=== PATIENT | female | born 1965 | race Caucasian/White ===

== ENCOUNTER 2024-01-08 16:45 | Emergency (ER) | payer MEDICARE, SELFPAY ==
--- NOTE | ~2024-01-08 | XR_ITS ---
EXAMINATION: XR WRIST, RIGHT CLINICAL INFORMATION: Fall COMPARISON: None available. TECHNIQUE: PA, lateral, and oblique views of the right wrist. FINDINGS: The bones are osteopenic. There is a comminuted fracture of the distal radius with a question intra-articular extension to the radiocarpal joint. There is a slight impaction. There is minimal dorsal displacement of the largest fracture fragment with respect to the more proximal shaft. There is a minimally displaced ulnar styloid fracture. Carpal bones are normal. There is diffuse soft tissue swelling about the wrist. XR/XR wrist RT min 3V IMPRESSION: Distal radius and ulnar styloid fractures. Osteopenia.
[2024-01-08 17:33] VITALS: BP 124/60; PULSE 84; RESP 14; TEMP 36.7; O2SAT 97; BMI 21.3
--- NOTE | 2024-01-08 17:34 | ED_ITS ---
HPI - General Adult General Chief complaint: Extremity Injury, Upper Stated complaint: R wrist fracture? Time Seen by Provider: 01/08/24 20:10 Source: patient and family (patient's daughter) Mode of arrival: ambulatory Limitations: physical limitation (patient is deaf in right ear) History of Present Illness HPI narrative: Patient is a 58 year old assigned female at with a history of COPD presenting to the emergency department today with right wrist pain. Patient states that she fell last night getting up to go to the bathroom after tripping on shoes. Patient states that she fell on an outstretched right hand. Patient denies any loss of consciousness or head strike. Patient denies any dizziness, lightheadedness, abdominal pain, nausea, vomiting, fever, chills, blurry vision, double vision, loss of vision, chest pain, difficulty breathing, shortness of breath, back pain, night sweats, pain with urination, increased urinary frequency, increased urinary urgency, blood in his urine or stool, syncope or a near syncopal episode, bowel incontinence, bladder incontinence, bowel retention, bladder retention, or any other complaints at this time. Onset (ago): day(s) (1) Location: right and upper extremity Radiation: non-radiation Severity: mild Severity scale (1-10): 4 Quality: aching and dull Pain Consistency: constant Relieving factors: immobilization Exacerbating factors: movement Associated symptoms: denies other symptoms Treatments prior to arrival: none Related Data Previous Rx's ?Medication ?Instructions ?Recorded doxycycline hyclate 100 mg tablet 100 mg PO BID 7 days #14 tabs 01/08/24 Allergies Allergy/AdvReac Type Severity Reaction Status Date / Time amoxicillin [From Augmentin] Allergy Anaphylaxis Verified 01/08/24 17:36 clavulanic acid Allergy Anaphylaxis Verified 01/08/24 17:36 [From Augmentin] lorazepam [From Ativan] Allergy Unknown Verified 01/08/24 17:36 Review of Systems Constitutional: Constitutional: Reports no additional constitutional complaints, Denies chills, Denies fever(s) and Denies night sweats Eyes: Eyes: Reports no additional eye complaints, Denies blurry vision, Denies change in vision, Denies diplopia, Denies eye discharge, Denies loss of vision and Denies eye pain ENT: Denies dizziness Comments: chronic right hearing loss Cardiovascular: Cardiovascular: Reports no additional cardiovascular complaints, Denies chest pain, Denies lightheadedness, Denies Loss of Consciousness and Denies dyspnea Respiratory: Respiratory: Reports no additional respiratory complaints and Denies dyspnea Gastrointestinal: Gastrointestinal: Reports no additional gastrointestinal complaints, Denies abdominal pain, Denies melena, Denies hematochezia, Denies change in bowel habits and Denies change in stool character Genitourinary: Genitourinary: Denies hematuria, Denies urinary frequency, Denies dysuria, Denies urinary incontinence, Denies urinary hesitancy and Denies urinary urgency Musculoskeletal: Musculoskeletal: Reports no additional musculoskeletal complaints, Denies numbness and Denies tingling Comments: right wrist pain Neurologic: Denies dizziness, Denies loss of vision, Denies numbness and Denies tingling Psychiatric: Psychiatric: Reports no additional psychiatric complaints Endocrine: Endocrine: Reports no additional endocrine complaints Hematologic/Lymphatic: Hematologic/Lymphatic: Reports no additional hematologic/lymphatic complaints Allergic/Immunologic: Allergic/Immunologic: Reports no additional allergic/immunologic complaints PMFSH Past Medical History Attestation statement: The following information was validated with the patient. (patient's daughter validated all information) Source: old records reviewed, obtained from family (patient's daughter provided additional history and confirmed the history provided by the patient) and nursing notes reviewed Social History Social History Advance Directives: No Advance Directives Information Provided: No Do you have a plan to hurt others: No Plan Physical Exam ED Vital Signs: Vital Signs - 24 hr 01/08/24 17:33 Temperature 98.1 F Pulse Rate 84 Respiratory Rate 14 Blood Pressure 124/60 Pulse Oximetry 97 Oxygen Delivery Method Room Air BMI result Body Mass Index 21.3 Const General: cooperative, no acute distress, alert and awake Nutritional Appearance: well nourished Orientation/consciousness: patient oriented x3 Limitations: no limitations HENMT Head: Yes normal to inspection and Yes atraumatic Ears: external ears normal and other (chronic right sided hearing loss) General nose exam: Normal external nose present, no nasal discharge noted and no epistaxis Face and sinus: Yes normal facial exam, No abrasion and No laceration Mouth: Normal oral and palatal mucosa present, no drooling and no muffled voice Eyes General: appearance normal, both eyes and all related structures Periorbital: periorbital findings normal Eyelids: Yes eyelids normal Conjunctivae: conjunctivae normal Pupils: Equal, round and reactive pupils present EOM: EOMs intact bilaterally Neck Neck: Yes normal visual inspection, Yes full ROM and Yes no lymphadenopathy Chest Chest palpation & inspection: normal inspection of the chest Resp Effort & Inspection: normal respiratory effort and able to speak in complete sentences GI Inspection: Yes normal to inspection Neuro General: patient oriented x3 and moves all extremities Cranial nerves: Yes Equal, round and reactive pupils present Cognition (Neuro): normal cognition Motor exam (neuro): 5/5 motor strength present throughout Sensory Exam: Normal double simultaneous stimulation for sensation Coordination: [id number] test normal Extrem Other: right wrist swelling present and pain with right wrist ROM. Small skin tear present to the right proximal forearm General: Yes capillary refill normal Psych Appearance: grossly normal Mental Status: mental status grossly normal Affect: normal affect Attitude: cooperative Thought process: Normal thought process present Thought content: Normal thought content present Insight: Good insight present (Psych) Course Course Course Narrative: RME performed by Ira Thurman PA-C. Patient is a 58 year old assigned female at presenting to the emergency department with right wrist pain. Patient states she tripped and fell onto her right wrist. Patient denies any head strike or loss of consciousness. Detailed physical exam and review of systems are deferred to the report developer. Imaging ordered. Patient placed back in the waiting room pending room availability and results. Procedures Orthopedic Splinting/Casting Injury #1: Side: right Upper Extremity Injury Location: wrist Upper Extremity Immobilizer: sling/shoulder immobilizer and sugar tong splint Medical Decision Making Medical Decision Making MDM Narrative: Patient is a 58 year old assigned female at with a history of COPD presenting to the emergency department today with right wrist pain. Patient's physical exam was as noted in the physical exam portion of this note. Patient's right wrist x-ray showed distal radius and ulnar styloid fractures. I explained my physical exam findings as well as all test results to the patient and the patient's daughter. I answered all questions asked by the patient and the patient's daughter. Patient's right wrist was placed in a sugar tong splint, without incident. Patient's PMS was intact prior to and after splint placement. Patient was given a sling to use when ambulating. I stressed the importance of the patient taking her medication as prescribed. I stressed the importance of the patient following up with her primary care provider and an orthopedic provider. I stressed the importance of the patient returning to the emergency department immediately if her symptoms were to worsen or if she were to develop any dizziness, shortness of breath, difficulty breathing, chest pain, blurry vision, loss of vision, nausea, vomiting, abdominal pain, fever, chills, back pain, or any other complaints. Patient and the patient's daughter verbalized agreement and understanding with this treatment plan and discharge. Differential Diagnosis Differential Diagnoses: The differential diagnosis associated with the presentation includes Wrist fracture Wrist injury Wrist pain Wrist strain Admission/Observation Consideration of admission/observation: Escalation of care including admission/observation considered Patient would have been admitted to the hospital had her work up had any findings where hospital admission was appropriate and her clinical presentation warranted hospital admission. Independent Interpretation I performed an independent interpretation of an: Plain X-Ray Interpretation: My interpretation is in agreement with the radiologist's impression of this imaging study. EXAMINATION: XR WRIST, RIGHT CLINICAL INFORMATION: Fall COMPARISON: None available. TECHNIQUE: PA, lateral, and oblique views of the right wrist. FINDINGS: The bones are osteopenic. There is a comminuted fracture of the distal radius with a question intra-articular extension to the radiocarpal joint. There is a slight impaction. There is minimal dorsal displacement of the largest fracture fragment with respect to the more proximal shaft. There is a minimally displaced ulnar styloid fracture. Carpal bones are normal. There is diffuse soft tissue swelling about the wrist. XR/XR wrist RT min 3V IMPRESSION: Distal radius and ulnar styloid fractures. Osteopenia. Dictated By: Mojgan Dean MD Signed By: Electronically signed by Mojgan Dean MD 01/08/241955 Radiology Impression Discussion of test interpretation with radiology: I have reviewed the radiologist's reading. Independent Historian Clinical information obtained from an independent historian. History obtained from or confirmed by: Other (patient's daughter provided additional history and confirmed the history provided by the patient.) Prescription Management I considered prescription management with: Antibiotic (patient prescribed a prophylactic antibiotic due to the right forearm skin tear and right wrist fx) Critical Care Time Critical Care Time Critical Care Time: Yes Total Critical Care Time: 71 Attestation: I spent 71 minutes of Critical Care Time with this patient. This does not include time spent on separately reported billable procedures. Discharge Plan Discharge Clinical Impression: Fracture of wrist Patient Disposition: Home, Self-Care Instructions: Wrist Fracture in Adults (ED) Additional Instructions: Do NOT get the spint wet. Do NOT remove the splint. If your fingers begin to change color or sensation, you may loosen the outside AUTUMN wraps. If you find yourself loosening the AUTUMN wrap to the point of seeing the underlying splint material, stop and come to the ER. Take your antibiotic as prescribed. Follow up with your primary care provider and an orthopedic provider. Return to the emergency department immediately if your symptoms worsen or if you develop any dizziness, shortness of breath, difficulty breathing, chest pain, blurry vision, loss of vision, nausea, vomiting, abdominal pain, fever, chills, back pain, or any other complaints. Prescriptions: New doxycycline hyclate 100 mg tablet 100 mg PO BID 7 Days Qty: 14 0RF Referrals: [facility] [place] [facility] [Provider Group] (Call to establish and follow up with an orthopedic provider.) Lynsey Doyle MD [Primary Care Provider] - Discharge Date/Time: 01/08/24 20:18 Print Language: Mongolian
--- OUTSIDE RECORDS SUMMARY | 2024-01-08 20:19 | XMS_ITS | Continuity of Care Document ---
Author Organization [facility] Address [address] [place] [address]- Care Team Providers Care Boats Renter Name Role Phone Lynsey Doyle MD Primary Care Physician [place] [facility] [place] [facility] [address] [place] [address] [facility] Attending Physician: Perry CASTANO ([facility]), Dangelo James Admitting Physician: Perry CASTANO ([facility]), Dangelo James Referring Physician: Lynsey Doyle MD Allergies, Adverse Reactions, Alerts Substance Reaction Severity Status salsalate rash Active Augmentin throat swelling Active Levaquin Active LORazepam Persistent Moderate Active Medications albuterol 90 mcg/inh inhalation powder 1 puffs, Inhalation, Every 4 hours, PRN as needed, # 1 each, 0 Refills, Maintenance, 01/16/20 21:20:00 EDT, Powder Start Date: 01/16/20 Status: Ordered Cipro 500 mg oral tablet 1 tablet = 500 mg, By Mouth, Every 12 hours, for 28 days, # 56 tablet, 0 Refills, Acute 05/09/20 9:24:00 EDT, 04/11/20 9:24:00 EDT, Tablet, [facility]/pharmacy #[id number], 157, cm, 04/11/20 9:04:00 EDT, Height, 45, kg, 01/17/20 15:52:00 EDT, Dry Weight Start Date: 04/11/20 Stop Date: 05/09/20 Status: Ordered Combivent Respimat 20 mcg-100 mcg/inh inhalation aerosol 1 puffs, Inhalation, 4 times a day, # 4 Gm, 0 Refills, Maintenance, 01/16/20 21:20:00 EDT, Aerosol Start Date: 01/16/20 Status: Ordered meropenem 1 gm intravenous powder for injection = 1,000 mg, IV Infusion, Every 8 hours, for 37 days, # 21 each, 5 Refills, Acute 08/30/20 11:18:00 EST, 01/21/20 11:18:00 EDT Start Date: 01/21/20 Stop Date: 08/30/20 Status: Ordered Symbicort 160mcg/4.5mcg Inhaler 2, puffs, Inhalation, 2 times a day, # 6 Gm, Refills 0, Maintenance, 01/16/20 21:19:00 EDT, Aerosol Start Date: 01/16/20 Status: Ordered Tylenol 8 Hour 650 mg oral tablet, extended release 2 tablet = 1,300 mg, By Mouth, Every 8 hours, PRN as needed for fever, # 50 tablet, 0 Refills, Maintenance, 01/16/20 21:19:00 EDT, ER Tablet Start Date: 01/16/20 Status: Ordered Social History Social History Type Response Smoking Status Current every day court estrada entered on: 12/26/14 Sex
--- OUTSIDE RECORDS SUMMARY | 2024-01-08 20:19 | XMS_ITS | Continuity of Care Document ---
Author Organization [facility] Address [address] [place], [place] [address]mad[place], [address] [place] [address]- Care Team Providers Care Obstetrical Anesthesiologist Name Role Phone Lynsey Doyle MD Primary Care Physician [place] [facility] [place] - 06/08/[address], [address] [place], [place] [address] Attending Physician: Admtr, Ar8 Admitting Physician: Admtr, Ar8 Referring Physician: Admtr, Ar8 Allergies, Adverse Reactions, Alerts Substance Reaction Severity Status salsalate rash Active Augmentin 1 throat swelling Active Levaquin Active LORazepam 2 Hallucinations Persistent Moderate Active 1Tolerates cefepime 2per daughter patient gets hallucinations. Immunizations Given and Recorded Vaccine Date Status Refusal Reason SARS-CoV-2 (COVID-19) mRNA-1273 vaccine 01/25/21 R ecorded SARS-CoV-2 (COVID-19) mRNA-1273 vaccine 12/27/20 R ecorded influenza virus vaccine, inactivated 09/08/20 Give n influenza virus vaccine, inactivated 07/16/19 Vijay rded tetanus/diphtheria/pertussis, acel(Tdap) 01/19/10 Recorded Medications albuterol 90 mcg/inh inhalation powder 1 puffs, Inhalation, Every 4 hours, PRN as needed, # 1 each, 0 Refills, Maintenance, 01/16/20 21:20:00 EDT, Powder Start Date: 01/16/20 Status: Ordered amLODIPine 5 mg oral tablet 5 mg, 1, tablet, By Mouth, Daily, # 30 tablet, Refills 0, Tot. Refills 0, Maintenance, 03/02/21 10:36:00 EDT, Route to Pharmacy Electronically, [facility]/pharmacy #[id number], Partial fill upon patient request if the prescription is for a schedule II opioid drug.... Start Date: 03/02/21 Status: Ordered Combivent Respimat 20 mcg-100 mcg/inh inhalation aerosol 1 puffs, Inhalation, 4 times a day, # 4 Gm, 0 Refills, Maintenance, 01/16/20 21:20:00 EDT, Aerosol Start Date: 01/16/20 Status: Ordered folic acid 1 mg oral tablet 1 mg, 1, tablet, By Mouth, Daily, # 30 tablet, Refills 0, Tot. Refills 0, Maintenance, 03/02/21 10:37:00 EDT, Route to Pharmacy Electronically, [facility]/pharmacy #[id number], Partial fill upon patient request if the prescription is for a schedule II opioid drug.... Start Date: 03/02/21 Status: Ordered multivitamin Multiple Vitamins oral tablet 1 tablet, By Mouth, Daily, # 30 tablet, 0 Refills, Maintenance, 03/02/21 10:38:00 EDT, Tablet, [facility]/pharmacy #[id number], Partial fill upon patient request if the prescription is for a schedule II opioid drug., 1 tablet By Mouth Daily, 160, cm, 09/08/20 1:35... Start Date: 03/02/21 Status: Ordered Symbicort 160mcg/4.5mcg Inhaler 2, puffs, Inhalation, 2 times a day, # 6 Gm, Refills 0, Maintenance, 01/16/20 21:19:00 EDT, Aerosol Start Date: 01/16/20 Status: Ordered thiamine 100 mg oral tablet 100 mg, 1, tablet, By Mouth, Daily, # 30 tablet, Refills 0, Tot. Refills 0, Maintenance, 03/02/21 10:37:00 EDT, Route to Pharmacy Electronically, [facility]/pharmacy #[id number], Partial fill upon patient requestif the prescription is for a schedule II opioid hebert... Start Date: 03/02/21 Stop Date: 04/01/21 Status: Ordered Problem List Condition Effective Dates Status Health Status Inform ant Myofascial pain on right side(Confirmed) Active Social History Social History Type Response Smoking Status Current every day court estrada entered on: 12/26/14 Sex
--- OUTSIDE RECORDS SUMMARY | 2024-01-08 20:19 | XMS_ITS | Continuity of Care Document ---
Author Organization [facility] ter Address [address] [place] [address]- Care Team Providers Care Certified Anesthesiologist Assistant Name Role Phone Lynsey Doyle MD Primary Care Physician [place] [facility] [place] - 01/22/[address] [address]- [facility] Encounter Diagnosis Hyponatremia(Final) - 01/16/20 Discharge Disposition: A-Transfer VNA/Home Health Attending Physician: Jonel Gaxiola MD Admitting Physician: Maylin Holloway DO Referring Physician: Not on Staff, Referring MD Allergies, Adverse Reactions, Alerts Substance Reaction Severity Status salsalate rash Active Augmentin throat swelling Active LORazepam Persistent Moderate Active Medications acetaminophen/butalbital/caffeine 325 mg-50 mg-40 mg oral capsule 1 capsule, By Mouth, Every 4 hours, PRN Headache, for 5 days, # 20 capsule, 0 Refills, Acute 01/26/20 11:16:00 EDT, 01/21/20 11:16:00 EDT, Capsule, [id number], 1 capsule By Mouth Every 4 hours,x5 days,PRN:Headache, 157, cm, 01/21/20 7:30:00 ED... Start Date: 01/21/20 Stop Date: 01/26/20 Status: Ordered albuterol 90 mcg/inh inhalation powder 1 puffs, Inhalation, Every 4 hours, PRN as needed, # 1 each, 0 Refills, Maintenance, 01/16/20 21:20:00 EDT, Powder Start Date: 01/16/20 Status: Ordered Combivent Respimat 20 mcg-100 mcg/inh [...] Date: 01/21/20 Stop Date: 08/30/20 Status: Ordered Nicoderm C-Q 21 mg/24 hr transdermal film, extended release 1 patch, Topically, Daily, for 28 days, # 28 patch, 1 Refills, Acute 03/18/20 8:24:00 EDT, :24:00 EDT, Patch, [facility]/pharmacy #[id number], 157, cm, 01/22/20 7:50:00 EDT, Height, 45, kg, 01/17/20 15:52:00 EDT, Dry Weight Start Date: 01/22/20 Stop Date: 03/18/20 Status: Ordered Symbicort 160mcg/4.5mcg Inhaler 2, puffs, [...] ER Tablet Start Date: 01/16/20 Status: Ordered Results Orders for Microbiology Reports Name Date Blood Culture 01/17/20 Blood Culture #2 01/17/20 CSF Culture w/ Gram Smear 01/16/20 AFB Culture w/ AFB Smear, Nonrespiratory (ACID FAST CULT,NON-RESP) 01/16/20 Microbiology Reports TEST:Blood Culture, Second Order STATUS:Auth (Verified) BODY SITE: SOURCE:Blood COLLECTED DATE/TIME:01/17/20 12:52 PM Blood Culture, Second Order SPECIMEN DESCRIPTION : BLOOD LWRIST SPECIAL REQUESTS : NONE CULTURE : NO GROWTH 5 DAYS. REPORT STATUS : FINAL 01/22/2020 TEST:Blood Culture STATUS:Auth (Verified) BODY SITE: SOURCE:Blood COLLECTED DATE/TIME:01/17/20 12:45 PM Blood Culture SPECIMEN DESCRIPTION : BLOOD LFOREARM SPECIAL REQUESTS : NONE CULTURE : NO GROWTH 5 DAYS. REPORT STATUS : FINAL 01/22/2020 TEST:Spinal Fluid Culture STATUS:Auth (Verified) BODY SITE: SOURCE:CEREBR COLLECTED DATE/TIME:01/16/20 3:24 PM Spinal Fluid Culture SPECIMEN DESCRIPTION : CEREBROSPINAL FLUID SPECIAL REQUESTS : NONE GRAM STAIN : 3+ POLYMORPHONUCLEAR LEUKOCYTES NO ORGANISMS SEEN CULTURE : NO GROWTH 3 DAYS REPORT STATUS : FINAL 01/19/2020 TEST:AFB Culture w/AFB Smear, Non-Respiratory STATUS:Unauthenticated BODY SITE: SOURCE:CEREBR COLLECTED DATE/TIME:01/16/20 3:24 PM AFB Culture w/AFB Smear, Non-Respiratory SPECIMEN DESCRIPTION : CEREBROSPINAL FLUID SPECIAL REQUESTS : NONE DIRECT EXAM : NO ACID FAST BACILLI SEEN ON DIRECT SMEAR, TEST PERFORMED AT [facility] No acid fast bacilli seen on concentrated smear. Per [facility] protocol, this specimen was concentrated prior to smear preparation. [facility], [address] [place] [id number]. CULTURE : SPECIMEN SENT TO DEPT PUBLIC [facility], [place], [place] REPORT STATUS : PRELIMINARY REPORT Radiology Reports * Exam Date Time Procedure Performing Provider Status 01/16/20 1:51 PM Chest Portable Songarabella Laine; Auth (Verified) Notes: (Chest Portable) Reason For Exam: Shortness of Breath RESULT: Chest Portable Chest Portable Reason: Shortness of Breath; Clinical Question(s): CHF; Hx of Present Illness: headaches x 1 hyr; COMPARISON: None. FINDINGS: LINES AND TUBES: None. LUNGS AND PLEURA: Clear lungs. Normal pulmonary vascularity. There are a few scattered left lung calcified granulomas. No pleural effusion. No pneumothorax. HEART, MEDIASTINUM AND JAMES: Heart is normal in size. Normal mediastinal and hilar contour. BONES AND SOFT TISSUES: No acute abnormality. Old left clavicular fracture. Anterior cervical fusion devices noted. IMPRESSION: No active disease. WSN: [id number] Ordering Physician: Chasity Lynn Dictated By: Romero Lan MD Dictated Date/Time: 01/16/20 2:38 pm Reviewed By: Romero Lan MD Signed By: Romero Lan MD Signed Date/Time: 01/16/20 2:38 pm Transcribed By: CSB Transcribed Date/Time: 01/16/20 2:36 pm Vital Signs Most recent to oldest [Reference Range]: 1 2 3 Height 157 cm (01/22/20 7:50 AM) 157 cm (01/22/20 12:34 AM) 157 cm (01/21/20 8:09 PM) Weight 44.3 kg (01/17/20 3:53 PM) 44.3 kg (01/17/20 3:52 PM) Oxygen Saturation [94-100 %] 96 % (01/22/20 7:50 AM) 96 % (01/22/20 12:34 AM) 96 % (01/21/20 8:09 PM) Pulse Rate [55-90 bpm] 79 bpm (01/22/20 7:50 AM) 83 bpm (01/22/20 12:34 AM) 94 bpm *H* (01/21/20 8:09 PM) Body Mass Index [18.5-24.99] 17.97 *L* (01/17/20 3:52 PM) Blood Pressure [90-138/55-84 mm Hg] 166/79mm Hg *H* (01/22/20 7:50 AM) 149/70mm Hg *H* (01/22/20 12:34 AM) 150/69mm Hg *H* (01/21/20 8:09 PM) Respiratory Rate [16-30 br/min] 18 br/min (01/22/20 7:50 AM) 19 br/min (01/22/20 12:34 AM) 20 br/min (01/21/20 10:56 PM) Temperature [96.8-100.4 DegF] 98.3 DegF (01/22/20 7:50 AM) 98.3 DegF (01/22/20 12:34 AM) 98.7 DegF (01/21/20 8:09 PM) Mode of Delivery (Oxygen) Room air (01/22/20 7:50 AM) Room air (01/22/20 12:34 AM) Room air (01/21/20 8:09 PM) Blood pressure sites Arm, right (01/22/20 7:50 AM) Arm, right (01/22/20 12:34 AM) Arm, right (01/21/20 8:09 PM) Temperature Route Oral (01/22/20 7:50 AM) Oral (01/22/20 12:34 AM) Oral (01/21/20 8:09 PM) Dry Weight 45 kg (01/17/20 3:52 PM) Weight Obtained Via Bed scale (01/17/20 3:53 PM) Social History Social History Type Response Smoking Status Current every day court estrada entered on: 12/26/14 Sex
--- OUTSIDE RECORDS SUMMARY | 2024-01-08 20:19 | XMS_ITS | Continuity of Care Document ---
Author Organization [facility] Address [address] [place] [address]- Care Team Providers Care Tax Map Technician Name Role Phone Lynsey Doyle MD Primary Care Physician Encounter [facility] [place] Date(s): 05/12/20 - 06/11/20 [facility] [address] [place] [address]- [facility] Allergies, Adverse Reactions, Alerts Substance Reaction Severity [...]
--- OUTSIDE RECORDS SUMMARY | 2024-01-08 20:19 | XMS_ITS | Continuity of Care Document ---
Author Organization [facility] ter Address [address] [place] [address]- Care Team Providers Care Parts Counterman Name Role Phone Lynsey Doyle MD Primary Care Physician [place] [facility] [place] 04/06/20 - 04/06/[address] [address]- [facility] Discharge Disposition: A-D/C Home Attending Physician: Neftaly Christie MD Admitting Physician: Neftaly Christie MD Referring Physician: Neftaly Christie MD Allergies, Adverse Reactions, Alerts Substance Reaction [...] ER Tablet Start Date: 01/16/20 Status: Ordered Vital Signs Most recent to oldest [Reference Range]: 1 2 3 Oxygen Saturation [94-100 %] 94 % (04/06/20 4:30 PM) 97 % (04/06/20 4:15 PM) 96 % (04/06/20 4:08 PM) Pulse Rate [55-90 bpm] 93 bpm *H* (04/06/20 12:50 PM) Blood Pressure [90-138/55-84 mm Hg] 138/64mm Hg (04/06/20 4:30 PM) 125/65mm Hg (04/06/20 4:15 PM) 132/70mm Hg (04/06/20 4:08 PM) Respiratory Rate [16-30 br/min] 17 br/min (04/06/20 4:30 PM) 17 br/min (04/06/20 4:15 PM) 16 br/min (04/06/20 4:08 PM) Temperature [96.8-100.4 DegF] 98.4 DegF (04/06/20 4:15 PM) 98.6 DegF (04/06/20 3:57 PM) 98.2 DegF (04/06/20 12:50 PM) Mode of Delivery (Oxygen) Room air (04/06/20 4:30 PM) Room air (04/06/20 4:15 PM) Room air (04/06/20 4:08 PM) Blood pressure sites Arm, right (04/06/20 4:30 PM) Arm, right (04/06/20 4:15 PM) Arm, right (04/06/20 4:08 PM) Temperature Route Temporal (04/06/20 4:15 PM) Temporal (04/06/20 3:57 PM) Oral (04/06/20 12:50 PM) Social History Social History Type Response Smoking Status Current every day court estrada entered on: 12/26/14 Sex
--- OUTSIDE RECORDS SUMMARY | 2024-01-08 20:19 | XMS_ITS | Continuity of Care Document ---
Author Organization [facility] Address [address] [facility], [address] Floor, [address] [place] [address]- Care Team Providers Care Tape Control Skin Or Spar Mill Operator Name Role Phone Lynsey Doyle MD Primary Care Physician [place] [facility] [place]14/20 - 02/13/20 [facility] [address], [address], [address] [place] [address]- [facility] Attending Physician: Admtr, Ar8 Admitting Physician: Admtr, Ar8 Referring Physician: Admtr, Ar8 Allergies, Adverse Reactions, Alerts Substance Reaction Severity Status salsalate rash Active Augmentin throat swelling Active LORazepam Persistent Moderate Active Medications albuterol [...] patch, 1 Refills, Acute 03/18/20 8:24:00 EDT, 208:24:00 EDT, Patch, [id number], 157, cm, 01/22/20 7:50:00 EDT, Height, [...]
--- OUTSIDE RECORDS SUMMARY | 2024-01-08 20:19 | XMS_ITS | Continuity of Care Document ---
Author Organization [facility] Address [address] [place], [place] [address]madan doyle, [address] [place] [address]- Care Team Providers Care Kiln Firer Name Role Phone Lynsey Doyle MD Primary Care Physician Encounter [facility] [place] Date(s): 04/24/21 - 05/24/21 [facility] [address] [place] [address] Drive, [address] [place], [place] [address] Allergies, Adverse Reactions, Alerts Substance Reaction Severity [...] 03/02/21 10:36:00 EDT, Route to Pharmacy Electronically, [facility]/pharmacy #[id number], Partial fill upon patient request if the [...] 03/02/21 10:37:00 EDT, Route to Pharmacy Electronically, [facility]/pharmacy #[id number], Partial fill upon patient request if the prescription is for a schedule II opioid drug.... Start Date: 03/02/21 Status: Ordered hydrocortisone/neomycin/polymyxin B otic 1%-0.35%-96678 u/ml suspension 4 drops, Ear, Right, 4 times a day, for 30 days, please continue until advised to stop by ENT, # 10mL, 2 Refills, Acute 05/31/21 10:38:00 EDT, 03/02/21 10:38:00 EDT, Otic Suspension, [facility]/pharmacy #[id number], Partial fill upon patient request if the prescr... Start Date: 03/02/21 Stop Date: 05/31/21 Status: Ordered multivitamin Multiple Vitamins oral tablet 1 tablet, By Mouth, Daily, # 30 tablet, 0 Refills, Maintenance, 03/02/21 10:38:00 EDT, Tablet, [facility]/pharmacy #[id number], Partial fill upon patient request if [...] 03/02/21 10:37:00 EDT, Route to Pharmacy Electronically, [facility]/pharmacy #[id number], Partial fill upon patient requestif the prescription is for a schedule II opioid hebert... Start Date: 03/02/21 Stop Date: 04/01/21 Status: Ordered Problem List Condition Effective Dates Status Health Status Inform ant Myofascial pain on right side(Confirmed) Active Social History Social History Type Response Smoking Status Current every day court estrada entered on: 12/26/14 Sex
--- OUTSIDE RECORDS SUMMARY | 2024-01-08 20:19 | XMS_ITS | Continuity of Care Document ---
Author Organization [facility] Address [address] [place] [address]- Care Team Providers Care Gum Rolling Machine Tender Name Role Phone Lynsey Doyle MD Primary Care Physician [phone] [place] [facility] [place] 03/05/21 - 04/04/21 [facility] [address] [place] [address] Allergies, Adverse Reactions, Alerts Substance Reaction Severity [...] EDT, Route to Pharmacy Electronically, [facility]/pharmacy #[id number], Partial fill upon patient request if the [...] Date: 03/02/21 Status: Ordered hydrocortisone/neomycin/polymyxin B otic 1%-0.35%-50404 u/ml suspension 4 drops, Ear, Right, 4 [...] Date: 03/02/21 Stop Date: 04/01/21 Status: Ordered Social History Social History Type Response Smoking Status Current every day court estrada entered on: 12/26/14 Sex
--- OUTSIDE RECORDS SUMMARY | 2024-01-08 20:19 | XMS_ITS | Continuity of Care Document ---
Author Organization [facility] Address [address] [facility], 3r [address] Floor, [address] [place] [address]- Care Team Providers Care Technical Services Representative Name Role Phone Lynsey Doyle MD Primary Care Physician [place] [facility] [place]): [place]21[place]20 [facility] [address], [address], [address] [place] [address]- [facility] Attending Physician: Karla Guerrero Referring Physician: Pratik CASTANO, Neftaly Bowie Allergies, Adverse Reactions, Alerts Substance Reaction Severity [...]
--- OUTSIDE RECORDS SUMMARY | 2024-01-08 20:19 | XMS_ITS | Continuity of Care Document ---
Author Organization [facility] Address [address] [place] [address]- Care Team Providers Care Dry Cleaning Supervisor Name Role Phone Lynsey Doyle MD Primary Care Physician [place] [facility] [place] 04[place]13/20 [facility] [address] [place] [address]- [facility] Attending Physician: Duong Ogden MD Admitting Physician: Duong Ogden MD Referring Physician: Lynsey Doyle MD Allergies, Adverse Reactions, Alerts Substance Reaction Severity Status salsalate rash Active Levaquin Active LORazepam Persistent Moderate Active Augmentin throat swelling Active Medications albuterol 90 mcg/inh inhalation powder 1 puffs, Inhalation, Every 4 hours, PRN as needed, # 1 each, 0 Refills, Maintenance, 01/16/20 21:20:00 EDT, Powder Start Date: 01/16/20 Status: Ordered Cipro 500 mg oral tablet 1 tablet = 500 mg, By Mouth, Every 12 hours, for 28 days, # 56 tablet, 0 Refills, Acute 05/09/20 9:24:00 EDT, 04/11/20 9:24:00 EDT, Tablet, [facility]/pharmacy #[id number], 157, cm, 04/11/20 9:04:00 EDT, Height, [...]
--- OUTSIDE RECORDS SUMMARY | 2024-01-08 20:19 | XMS_ITS | Continuity of Care Document ---
Author Organization [facility] ter Address [address] [place] [address]- Care Team Providers Care Conductor/Brakeman Name Role Phone Vivek CASTANO, Lynsey James Primary Care Physician Encounter [facility] [place] Date(s): 02/18/21 - 03/02/[address] [address] Encounter Diagnosis Alcohol withdrawal(Final) - 02/19/21 Discharge Disposition: A-Transfer VNA/Home Health Attending Physician: Murali CASTANO, Nathan John Admitting Physician: Mynor Jean MD Referring Physician: Not on Staff, Referring MD [...] 03/02/21 10:36:00 EDT, [facility], [id number], Partial fill upon patient request if the prescription is for a schedule II opioid drug.... Start Date: 03/02/21 Status: Ordered amLODIPine 5 mg oral tablet 5 mg, Tablet, By Mouth, 03/02/21 9:00:00 EDT Start Date: 03/02/21 Stop Date: 03/02/21 Status: Completed Combivent Respimat 20 mcg-100 mcg/inh inhalation aerosol 1 puffs, Inhalation, 4 times a day, # 4 Gm, 0 Refills, Maintenance, 01/16/20 21:20:00 EDT, Aerosol Start Date: 01/16/20 Status: Ordered folic acid 1 mg oral tablet 1 mg, 1, tablet, By Mouth, Daily, # 30 tablet, Refills 0, Tot. Refills 0, Maintenance, 03/02/21 10:37:00 EDT, Route to Pharmacy Electronically, [facility]/pharmacy #[id number], Partial fill upon patient request if the prescription is for a schedule II opioid drug.... Start Date: 03/02/21 Status: Ordered hydrocortisone/neomycin/polymyxin B otic 1%-0.35%-37150 u/ml suspension 4 drops, Ear, Right, 4 times a day, for 30 days, please continue until advised to stop by ENT, # 10mL, 2 Refills, Acute 05/31/21 10:38:00 EDT, 03/02/21 10:38:00 EDT, Otic Suspension, [facility]/pharmacy #[id number], Partial fill upon patient request if the prescr... Start Date: 03/02/21 Stop Date: 05/31/21 Status: Ordered meropenem 1 gm intravenous powder for injection = 2,000 mg, IV Infusion, Every 8 hours, # 30 each, 0 Refills, Acute 04/04/21 22:00:00 EDT, 03/02/2110:39:00 EDT, [facility]/pharmacy #[id number], Partial fill upon patient request if the prescription is for a schedule II opioid drug., 160, cm, 09/08/20 1:35:00 ES... Start Date: 03/02/21 Stop Date: 04/04/21 Status: Ordered multivitamin Multiple Vitamins oral tablet 1 tablet, By Mouth, Daily, # 30 tablet, 0 Refills, Maintenance, 03/02/21 10:38:00 EDT, Tablet, [facility]/pharmacy #[id number], Partial fill upon patient request if the prescription is for a schedule II opioid drug., 1 tablet By Mouth Daily, 160, cm, 09/08/20 1:35... Start Date: 03/02/21 Status: Ordered nicotine 14 mg/24 hr transdermal film, extended release 1 patch, Topically, Daily, for 30 days, # 30 patch, 0 Refills, Acute 04/01/21 10:39:00 EDT, 03/02/21 10:39:00 EDT, Patch, [facility]/pharmacy #[id number], Partial fill upon patient request if the prescription is for a schedule II opioid drug., 1 patch Topically Da... Start Date: 03/02/21 Stop Date: 04/01/21 Status: Ordered Symbicort 160mcg/4.5mcg Inhaler 2, puffs, Inhalation, 2 times a day, # 6 Gm, Refills 0, Maintenance, 01/16/20 21:19:00 EDT, Aerosol Start Date: 01/16/20 Status: Ordered thiamine 100 mg oral tablet 100 mg, 1, tablet, By Mouth, Daily, # 30 tablet, Refills 0, Tot. Refills 0, Maintenance, 03/02/21 10:37:00 EDT, Route to Pharmacy Electronically, [facility]/pharmacy #[id number], Partial fill upon patient requestif the prescription is for a schedule II opioid hebert... Start Date: 03/02/21 Stop Date: 04/01/21 Status: Ordered Results Orders for Microbiology Reports Name Date CSF Culture w/ Gram Smear 02/19/21 Fungal Culture, Nonrespiratory (FUNGAL C ULT,NON-RESPIRATORY) 02/19/21 Blood Culture #2 02/18/21 Blood Culture 02/18/21 Microbiology Reports TEST:Spinal Fluid Culture STATUS:Auth (Verified) BODY SITE: SOURCE:CEREBR COLLECTED DATE/TIME:02/19/21 4:45 PM Spinal Fluid Culture SPECIMEN DESCRIPTION : CEREBROSPINAL FLUID SPECIAL REQUESTS : NONE GRAM STAIN : 4+ WHITE BLOOD CELLS NO ORGANISMS SEEN CULTURE : NO GROWTH 3 DAYS REPORT STATUS : FINAL 02/23/2021 TEST:Fungal Culture, Non-Respiratory STATUS:Unauthenticated BODY SITE: SOURCE:CEREBR COLLECTED DATE/TIME:02/19/21 4:45 PM Fungal Culture, Non-Respiratory SPECIMEN DESCRIPTION : CEREBROSPINAL FLUID TU3 SPECIAL REQUESTS : NONE DIRECT EXAM : NO FUNGAL ELEMENTS OBSERVED CULTURE : NO FUNGI ISOLATED AFTER 8 DAYS REPORT STATUS : PRELIMINARY REPORT TEST:Blood Culture, Second Order STATUS:Auth (Verified) BODY SITE: SOURCE:Blood COLLECTED DATE/TIME:02/18/21 4:06 PM Blood Culture, Second Order SPECIMEN DESCRIPTION : BLOOD NO SITE SPECIAL REQUESTS : NONE CULTURE : NO GROWTH 5 DAYS. REPORT STATUS : FINAL 02/23/2021 TEST:Blood Culture STATUS:Auth (Verified) BODY SITE: SOURCE:Blood COLLECTED DATE/TIME:02/18/21 3:58 PM Blood Culture SPECIMEN DESCRIPTION : BLOOD R SPECIAL REQUESTS : NONE CULTURE : NO GROWTH 5 DAYS. REPORT STATUS : FINAL 02/23/2021 Radiology Reports * Exam Date Time Procedure Performing Provider Status 02/21/21 4:36 PM Chest Portable Osmel Pinto; Auth (Ve rified) Notes: (Chest Portable) Reason For Exam: OG Tube Placement RESULT: Chest Portable Chest Portable Reason: OG Tube Placement; Clinical Question(s): Tube Placement COMPARISON: 02/21/2021 at 1342 FINDINGS: Stable endotracheal tube. Enteric tube courses below the diaphragm into the stomach. Esophageal thermometer probe is stable. Left subclavian central venous catheter is stable IMPRESSION: Enteric tube courses below the diaphragm into the stomach. No acute cardiopulmonary process WSN: [id number] Ordering Physician: Zelalem Peralta Dictated By: Chintan Vega MD Dictated Date/Time: 02/21/21 4:53 pm Reviewed By: Chintan Vega MD Signed By: Chintan Vega MD Signed Date/Time: 02/21/21 4:53 pm Transcribed By: RENÉE Transcribed Date/Time: 02/21/21 4:51 pm * Exam Date Time Procedure Performing Provider Status 02/21/21 2:04 PM Chest Portable Stepan Najera; Auth ( Verified) Notes: (Chest Portable) Reason For Exam: Line Placement RESULT: Chest Portable Chest Portable Reason: Line Placement; Clinical Question(s): Line Placement COMPARISON: 02/18/2021 FINDINGS: Enteric tube tip projects over the proximal stomach. Side port at the approximate level of the GE junction. Stable endotracheal tube. Left subclavian central venous catheter tip projects over the SVC. Esophageal thermometer probe over the mid thorax. No acute cardiopulmonary process IMPRESSION: Support lines and tubes are outlined above. Side port of the enteric tube projects at the expected level of the GE junction. Consider advancement. No acute cardiopulmonary process A Wyatt message has been communicated via the [employer] system on 02/21/2021 2:41 PM, Message ID [id number]. WSN: [id number] Ordering Physician: Elyse Portillo Dictated By: Chintan Vega MD Dictated Date/Time: 02/21/21 2:41 pm Reviewed By: Chintan Vega MD Signed By: Chintan Vega MD Signed Date/Time: 02/21/21 2:41 pm Transcribed By: RENÉE Transcribed Date/Time: 02/21/21 2:40 pm * Exam Date Time Procedure Performing Provider Status 02/18/21 5:42 PM Chest Portable Cindy Fong; Anderson ( Verified) Notes: (Chest Portable) Reason For Exam: Tube Placement RESULT: Chest Portable Chest Portable Hx of Present Illness: I think I have osteomyelitis h o this in L jaw?? Uncertain of when - pt not a good historian in triage Z Pod. Per daughter - last drink 3 days ago. c o tremors, N V, ESPINAL, L jaw neck pain; Reason: Tube Placement; Clinical Question(s): Tube Placement COMPARISON: 02/18/2021 FINDINGS: LINES AND TUBES: Endotracheal tube with tip 6.3 cm above jadiel. Esophagogastric tube with tip collimated from view,but with side port below region of gastroesophageal junction. LUNGS AND PLEURA: No pneumothorax. No pleural effusion. The lungs are clear. Pulmonary vascularity is normal. HEART, MEDIASTINUM AND JAMES: Heart is normal in size. Normal mediastinal silhouette. BONES AND SOFT TISSUES: No acute bony abnormalities. IMPRESSION: Endotracheal tube tip 6.3 cm above jadiel. Slight advancement could optimize position. Esophagogastric tube side port appropriately below the gastroesophageal junction. No acute abnormality. WSN: [id number] Ordering Physician: Julian Collins Dictated By: Duong Matson MD Dictated Date/Time: 02/18/21 6:09 pm Reviewed By: Duong Matson MD Signed By: Duong Matson MD Signed Date/Time: 02/18/21 6:09 pm Transcribed By: RENÉE Transcribed Date/Time: 02/18/21 6:07 pm * Exam Date Time Procedure Performing Provider Status 02/18/21 4:07 PM Chest Portable Fitting , Rosalio; Anderson ( Verified) Notes: (Chest Portable) Reason For Exam: Shortness of Breath RESULT: Chest Portable Chest Portable Hx of Present Illness: I think I have osteomyelitis h o this in L jaw?? Uncertain of when - pt not a good historian in triage Z Pod. Per daughter - last drink 3 days ago. c o tremors, N V, ESPINAL, L jaw neck pain; Reason: Shortness of Breath; Clinical Question(s): CHF COMPARISON: 09/05/2020 FINDINGS: LINES AND TUBES: None. LUNGS AND PLEURA: Right lung is clear. Unchanged calcified granuloma in the left upper lobe. Left lung is otherwise clear. No pleural effusion. No pneumothorax. HEART, MEDIASTINUM AND JAMES: Heart is normal in size. Aorta is mildly calcified. BONES AND SOFT TISSUES: No acute abnormality. Lower cervical fusion hardware. IMPRESSION: No acute abnormality. WSN: [id number] Ordering Physician: Julian Collins Dictated By: Gvoind De Santiago DO Dictated Date/Time: 02/18/21 4:14 pm Reviewed By: Govind De Santiago DO Signed By: Govind De Santiago DO Signed Date/Time: 02/18/21 4:14 pm Transcribed By: RENÉE Transcribed Date/Time: 02/18/21 4:13 pm Vital Signs Most recent to oldest [Reference Range]: 1 2 3 Weight 54 kg (03/02/21 7:29 AM) 54.5 kg (02/28/21 7:23 AM) 53.5 kg (02/27/21 8:30 AM) Oxygen Saturation [94-100 %] 97 % (03/02/21 6:29 AM) 97 % (03/02/21 2:25 AM) 99 % (03/01/21 4:25 PM) Pulse Rate [55-90 bpm] 90 bpm (03/02/21 6:29 AM) 85 bpm (03/02/21 2:25 AM) 90 bpm (03/01/21 4:25 PM) Blood Pressure [90-138/55-84 mm Hg] 120/67mm Hg (03/02/21 9:26 AM) 118/65mm Hg (03/02/21 6:29 AM) 127/51mm Hg (03/02/21 2:25 AM) Respiratory Rate [16-30 br/min] 18 br/min (03/02/21 6:29 AM) 18 br/min (03/02/21 2:25 AM) 18 br/min (03/01/21 4:25 PM) Temperature [96.8-100.4 DegF] 98.3 DegF (03/02/21 6:29 AM) 98.0 DegF (03/02/21 2:25 AM) 98.0 DegF (03/01/21 4:25 PM) Liters per Minute 2 L/min (02/24/21 11:00 AM) 2 L/min (02/24/21 10:00 AM) 2 L/min (02/24/21 9:00 AM) Mode of Delivery (Oxygen) Room air (03/02/21 6:29 AM) Room air (03/02/21 2:25 AM) Room air (03/01/21 4:25 PM) Blood pressure sites Arm, right (03/02/21 6:29 AM) Arm, right (03/02/21 2:25 AM) Arm, left (03/01/21 4:25 PM) Temperature Route Oral (03/02/21 6:29 AM) Oral (03/02/21 2:25 AM) Oral (03/01/21 4:25 PM) Dry Weight 48.1 kg (02/19/21 7:00 AM) Weight Obtained Via Bed scale (02/18/21 8:27 PM) Dry Weight Obtained Via Bed scale (02/19/21 7:00 AM) Social History Social History Type Response Smoking Status Current every day court estrada entered on: 12/26/14 Sex
--- OUTSIDE RECORDS SUMMARY | 2024-01-08 20:19 | XMS_ITS | Continuity of Care Document ---
Author Organization [facility] Address [address] [place] [address]- Care Team Providers Care Metal Box Maker Name Role Phone Lynsey Doyle MD Primary Care Physician [phone] Encounter [facility] [place] Date(s): 08/13/21 - 09/12/21 [facility] [address] [place] [address]- Attending Physician: Milton Haque Admitting Physician: AdmMilton julio Referring Physician: Admtr, Ar8 Allergies, Adverse Reactions, Alerts Substance Reaction Severity Status salsalate rash Active Levaquin Active LORazepam 1 Hallucinations Persistent Moderate Active Augmentin 2 throat swelling Active 1per daughter patient gets hallucinations. 2Tolerates cefepime Immunizations Given and Recorded Vaccine Date Status Refusal Reason SARS-CoV-2 (COVID-19) mRNA-1273 vaccine 01/25/21 R ecorded SARS-CoV-2 (COVID-19) mRNA-1273 vaccine 12/27/20 R ecorded influenza virus vaccine, inactivated 09/08/20 Give n influenza virus vaccine, inactivated 07/16/19 Vijay rded tetanus/diphtheria/pertussis, acel(Tdap) 01/19/10 Recorded Medications amLODIPine 5 mg oral tablet 5 mg, 1, tablet, By Mouth, Daily, # 30 tablet, Refills 0, Tot. Refills 0, Maintenance, 03/02/21 10:36:00 EDT, Route to Pharmacy Electronically, [facility]/pharmacy #[id number], Partial fill upon patient request if the prescription is for a schedule II opioid drug.... Start Date: 03/02/21 Status: Ordered Symbicort 160mcg/4.5mcg Inhaler 2, puffs, Inhalation, 2 times a day, # 6 Gm, Refills 0, Maintenance, 01/16/20 21:19:00 EDT, Aerosol Start Date: 01/16/20 Status: Ordered thiamine 100 mg oral tablet 100 mg, 1, tablet, By Mouth, Daily, # 30 tablet, Refills 0, Tot. Refills 0, Maintenance, 03/02/21 10:37:00 EDT, Route to Pharmacy Electronically, [facility]/pharmacy #[id number], Partial fill upon patient requestif the prescription is for a schedule II opioid hebert... Start Date: 03/02/21 Stop Date: 04/01/21 Status: Ordered Problem List Condition Effective Dates Status Health Status Inform ant Myofascial pain on right side(Confirmed) Active Social History Social History Type Response Smoking Status Current every day court estrada entered on: 12/26/14 Sex
--- OUTSIDE RECORDS SUMMARY | 2024-01-08 20:19 | XMS_ITS | Continuity of Care Document ---
Author Organization [facility] Address [address] [place] [address]- Care Team Providers Care Machine Gun Mechanic Name Role Phone Lynsey Doyle MD Primary Care Physician Encounter [facility] [place] Date(s): 03/30/21 - 04/29/21 [facility] [address] [place] [id number] Attending Physician: AdmtrMilton Admitting Physician: Admtr, Ar8 Referring Physician: Admtr, [...] 03/02/21 10:36:00 EDT, Route to Pharmacy Electronically, [facility]/pharmacy #[id number], Partial fill upon patient request if the [...] 03/02/21 10:37:00 EDT, Route to Pharmacy Electronically, [facility]/pharmacy #[id number], Partial fill upon patient request if the prescription is for a schedule II opioid drug.... Start Date: 03/02/21 Status: Ordered hydrocortisone/neomycin/polymyxin B otic 1%-0.35%-81154 u/ml suspension 4 drops, Ear, Right, 4 times a day, for 30 days, please continue until advised to stop by ENT, # 10mL, 2 Refills, Acute 05/31/21 10:38:00 EDT, 03/02/21 10:38:00 EDT, Otic Suspension, [facility]/pharmacy #[id number], Partial fill upon patient request if the prescr... Start Date: 03/02/21 Stop Date: 05/31/21 Status: Ordered multivitamin Multiple Vitamins oral tablet 1 tablet, By Mouth, Daily, # 30 tablet, 0 Refills, Maintenance, 03/02/21 10:38:00 EDT, Tablet, [facility]/pharmacy #[id number], Partial fill upon patient [...] 03/02/21 10:37:00 EDT, Route to Pharmacy Electronically, [id number], Partial fill upon patient requestif the prescription is for a schedule II opioid hebert... Start Date: 03/02/21 Stop Date: 04/01/21 Status: Ordered Social History Social History Type Response Smoking Status Current every day court estrada entered on: 12/26/14 Sex
--- OUTSIDE RECORDS SUMMARY | 2024-01-08 20:19 | XMS_ITS | Continuity of Care Document ---
Author Organization [facility] ter Address [address] [place] [address]- Care Team Providers Care Internal Specialist Name Role Phone Lynsey Doyle MD Primary Care Physician [place] [facility] [place] - 09/09/[address] [address]- Encounter Diagnosis Abdominal pain(Final) - 09/05/20 Discharge Disposition: A-D/C Home Attending Physician: Lazaro Diaz MD, Declan Amezcua Admitting Physician: Mynor Prather DO Referring Physician: Not on Staff, Referring MD Allergies, Adverse Reactions, Alerts Substance Reaction Severity Status salsalate rash Active Augmentin throat swelling Active Levaquin Active LORazepam Persistent Moderate Active Immunizations Given and Recorded Vaccine Date Status Refusal Reason influenza virus vaccine, inactivated 09/08/20 Give n Medications albuterol 90 mcg/inh inhalation powder 1 puffs, Inhalation, Every 4 hours, PRN as needed, # 1 each, 0 Refills, Maintenance, 01/16/20 21:20:00 EDT, Powder Start Date: 01/16/20 Status: Ordered Combivent Respimat 20 mcg-100 mcg/inh inhalation aerosol 1 puffs, Inhalation, 4 times a day, # 4 Gm, 0 Refills, Maintenance, 01/16/20 21:20:00 EDT, Aerosol Start Date: 01/16/20 Status: Ordered oxyCODONE 5 mg oral tablet 2.5 mg, Tablet, By Mouth, Every 6 hours, PRN for Pain , Moderate, Routine, 09/08/20 11:37:00 EST Start Date: 09/08/20 Stop Date: 09/09/20 Status: Discontinued Symbicort 160mcg/4.5mcg Inhaler 2, puffs, Inhalation, 2 times a day, # 6 Gm, Refills 0, Maintenance, 01/16/20 21:19:00 EDT, Aerosol Start Date: 01/16/20 Status: Ordered Results Radiology Reports * Exam Date Time Procedure Performing Provider Status 09/05/20 2:45 PM Chest Portable Laine Spain; Auth (Verified) Notes: (Chest Portable) Reason For Exam: Chest Pain;Other: RESULT: Chest Portable Chest Portable HX OF PRESENT ILLNESS: headaches and earaches; COMPARISON: 01/16/2020 FINDINGS: LUNGS AND PLEURA: Clear lungs. Scattered calcified granulomas, similar to prior. Normal pulmonary vascularity. No pleural effusion. No pneumothorax. HEART, MEDIASTINUM AND JAMES: Heart is normal in size. Normal upper mediastinal and hilar contour. BONES AND SOFT TISSUES: No acute abnormality. IMPRESSION: No acute abnormality. I have personally reviewed the images and I agree with this report. WSN: [id number] Ordering Physician: Deniz Baez MD Dictated By: Yury Polo MD Dictated Date/Time: 09/05/20 2:52 pm Reviewed By: Linda Soto MD Signed By: Linda Soto MD Signed Date/Time: 09/05/20 2:57 pm Transcribed By: RENÉE Transcribed Date/Time: 09/05/20 2:48 pm Vital Signs Most recent to oldest [Reference Range]: 1 2 3 Height 160 cm (09/08/20 1:35 AM) 160 cm (09/07/20 4:43 PM) 160 cm (09/07/20 2:54 PM) Weight 51 kg (09/07/20 2:54 PM) Oxygen Saturation [94-100 %] 100 % (09/09/20 8:00 AM) 96 % (09/09/20 3:00 AM) 99 % (09/08/20 11:00 PM) Pulse Rate [55-90 bpm] 117 bpm *H* (09/09/20 8:00 AM) 88 bpm (09/09/20 3:00 AM) 79 bpm (09/08/20 11:00 PM) Body Mass Index [18.5-24.99] 19.92 (09/07/20 2:54 PM) Blood Pressure [90-138/55-84 mm Hg] 109/83mm Hg (09/09/20 8:00 AM) 127/82mm Hg (09/09/20 3:00 AM) 139/88mm Hg *H* (09/08/20 11:00 PM) Respiratory Rate [16-30 br/min] 18 br/min (09/09/20 11:31 AM) 18 br/min (09/09/20 9:52 AM) 18 br/min (09/09/20 8:00 AM) Temperature [96.8-100.4 DegF] 98.4 DegF (09/09/20 8:00 AM) 98.2 DegF (09/09/20 3:00 AM) 98.1 DegF (09/08/20 11:00 PM) Liters per Minute 2 L/min (09/07/20 1:35 PM) 2 L/min (09/07/20 12:16 PM) 2 L/min (09/07/20 11:00 AM) Mode of Delivery (Oxygen) Room air (09/09/20 8:00 AM) Room air (09/09/20 3:00 AM) Room air (09/08/20 11:00 PM) Blood pressure sites Arm, left (09/09/20 8:00 AM) Arm, left (09/09/20 3:00 AM) Arm, left (09/08/20 11:00 PM) Temperature Route Oral (09/09/20 8:00 AM) Oral (09/09/20 3:00 AM) Oral (09/08/20 11:00 PM) Dry Weight 51 kg (09/07/20 2:54 PM) Social History Social History Type Response Smoking Status Current every day court estrada entered on: 12/26/14 Sex
--- OUTSIDE RECORDS SUMMARY | 2024-01-08 20:19 | XMS_ITS | Continuity of Care Document ---
Author Organization [facility] ter Address [address] [place] [address]- Care Team Providers Care Director Music Name Role Phone Lynsey Doyle MD Primary Care Physician [place] [facility] [place] 01/21/20 - 02/20/[address] [address]- [facility] Attending Physician: Not on Staff, Attending MD Admitting Physician: Not on Staff, Admitting MD Referring Physician: Not on Staff, Referring [...] patch, 1 Refills, Acute 03/18/20 8:24:00 EDT, 05/30/208:24:00 EDT, Patch, [id number], 157, cm, 01/22/20 [...]
--- OUTSIDE RECORDS SUMMARY | 2024-01-08 20:19 | XMS_ITS | Continuity of Care Document ---
Author Organization [facility] Address [address] [place], [place] [address]madan doyle, [address] [place] [address]- Care Team Providers Care Nursing Project Coordinator Name Role Phone Lynsey Doyle MD Primary Care Physician [place] [facility] [place] [facility] [place]09[place] - 05/16/21 [facility] [address] [place] [address] Drive, [address] [place], [place] [address] Attending Physician: Jonel Cohen MD Referring Physician: Lynsey Doyle MD Allergies, [...] 03/02/21 10:36:00 EDT, Route to Pharmacy Electronically, [facility]/pharmacy #[id number], Partial fill upon patient request if the [...] 03/02/21 10:37:00 EDT, Route to Pharmacy Electronically, [facility]/pharmacy #[id number], Partial fill upon patient request if the prescription is for a schedule II opioid drug.... Start Date: 03/02/21 Status: Ordered hydrocortisone/neomycin/polymyxin B otic 1%-0.35%-87359 u/ml suspension 4 drops, Ear, Right, 4 times a day, for 30 days, please continue until advised to stop by ENT, # 10mL, 2 Refills, Acute 05/31/21 10:38:00 EDT, 03/02/21 10:38:00 EDT, Otic Suspension, [facility]/pharmacy #[id number], Partial fill upon patient request if the prescr... Start Date: 03/02/21 Stop Date: 05/31/21 Status: Ordered multivitamin Multiple Vitamins oral tablet 1 tablet, By Mouth, Daily, # 30 tablet, 0 Refills, Maintenance, 03/02/21 10:38:00 EDT, Tablet, [facility]/pharmacy #[id number], Partial fill upon patient request if [...] 03/02/21 10:37:00 EDT, Route to Pharmacy Electronically, [facility]/pharmacy #[id number], Partial fill upon patient requestif the prescription is for a schedule II opioid hebert... Start Date: 03/02/21 Stop Date: 04/01/21 Status: Ordered Vital Signs Most recent to oldest [Reference Range]: 1 Height 160 cm (05/09/21 12:54 PM) Weight 54 kg (05/09/21 12:54 PM) Body Mass Index [18.5-24.99] 21.09 (05/09/21 12:54 PM) Social History Social History Type Response Smoking Status Current every day court estrada entered on: 12/26/14 Sex
--- OUTSIDE RECORDS SUMMARY | 2024-01-08 20:19 | XMS_ITS | Continuity of Care Document ---
Author Organization [facility] Address [address] [place] [address]- Care Team Providers Care Radiator Fitter Name Role Phone Lynsey Doyle MD Primary Care Physician Encounter [facility] [place] Date(s): 05/03/21 - 06/02/21 [facility] [address] [place] [id number] Allergies, Adverse Reactions, Alerts Substance Reaction Severity [...] 03/02/21 10:36:00 EDT, Route to Pharmacy Electronically, [facility]/pharmacy #[id number], Partial fill upon patient request if the [...] 03/02/21 10:37:00 EDT, Route to Pharmacy Electronically, [facility]/pharmacy #[id number], Partial fill upon patient [...] 03/02/21 10:37:00 EDT, Route to Pharmacy Electronically, [facility]/pharmacy #[id number], Partial fill upon patient [...]
--- OUTSIDE RECORDS SUMMARY | 2024-01-08 20:19 | XMS_ITS | Continuity of Care Document ---
Author Organization [facility] Address [address] [place] [address]- Care Team Providers Care Sailor Name Role Phone Lynsey Doyle MD Primary Care Physician [place] [facility] [place]/20 [facility] [address] [place] [address]- [facility] Attending Physician: Duong Ogden MD Admitting Physician: [...]
--- OUTSIDE RECORDS SUMMARY | 2024-01-08 20:19 | XMS_ITS | Continuity of Care Document ---
Author Organization [facility] Address [address] [place] [address]- Care Team Providers Care Fabric Worker Foreman Name Role Phone Lynsey Doyle MD Primary Care Physician [place] [facility] [place] Date(s): 03/08/20 - 04/07/20 [facility] [address] [place] [address]- [facility] Allergies, Adverse Reactions, Alerts Substance Reaction Severity [...]
--- OUTSIDE RECORDS SUMMARY | 2024-01-08 20:19 | XMS_ITS | Continuity of Care Document ---
Author Organization [facility] ter Address [address] [place] [address]- Care Team Providers Care Flatwork Presser Name Role Phone Lynsey Doyle MD Primary Care Physician [phone] [place] [facility] [place] - 05/05/[address] [address]- [facility] Attending Physician: Neftaly Christie MD Admitting Physician: [...] 05/09/20 9:24:00 EDT, 04/11/20 9:24:00 EDT, Tablet, [facility]/pharmacy #[id number], 157, cm, 04/11/20 9:04:00 [...]
--- OUTSIDE RECORDS SUMMARY | 2024-01-08 20:19 | XMS_ITS | Continuity of Care Document ---
Author Organization [facility] Address [address] [place] [address]- Care Team Providers Care Oncology Navigator Name Role Phone Lynsey Doyle MD Primary Care Physician En[place] [facility] [place](s): 05/11/20 - 06/10/20 [facility] [address] [place] [address]- [facility] Allergies, Adverse Reactions, Alerts Substance Reaction Severity [...]
--- OUTSIDE RECORDS SUMMARY | 2024-01-08 20:19 | XMS_ITS | Continuity of Care Document ---
Author Organization [facility] Address [address] [place] [address]- Care Team Providers Care Donkey Engine Firer/Fireman Name Role Phone Lynsey Doyle MD Primary Care Physician [phone] Encounter [facility] [place] Date(s): 02/28/20 - 03/29/20 [facility] [address] [place] [address]- [facility] Allergies, Adverse Reactions, Alerts Substance Reaction [...]
--- OUTSIDE RECORDS SUMMARY | 2024-01-08 20:19 | XMS_ITS | Continuity of Care Document ---
Author Organization [facility] Address [address] [place] [address]- Care Team Providers Care Accounting Assistant Name Role Phone Lynsey Doyle MD Primary Care Physician [place] [facility] [place] 06/12/21 - 09/12/21 [facility] [address] [place] [address]- Attending Physician: Dayna Reinoso MD Admitting Physician: Dayna Reinoso MD Allergies, Adverse Reactions, Alerts Substance Reaction [...] 03/02/21 10:36:00 EDT, Route to Pharmacy Electronically, [facility]/pharmacy #[id number], Partial fill upon patient request if the [...] 03/02/21 10:37:00 EDT, Route to Pharmacy Electronically, [facility]/pharmacy #[id number], Partial fill upon patient requestif the prescription is for a schedule II opioid hebert... Start Date: 03/02/21 Stop Date: 04/01/21 Status: Ordered Problem List Condition Effective Dates Status Health Status Inform ant Myofascial pain on right side(Confirmed) Active Social History Social History Type Response Smoking Status Current every day court estrada entered on: 12/26/14 Sex
== END 2024-01-08 20:18 | disposition home or self-care (01) ==
LOC: HO.ED 20:17
PROVIDERS: Emergency Provider Emergency Medicine; PCP Internal Medicine
DX: S52.571A Other intraarticular fracture of lower end of right radius, initial encounter for closed fracture (principal); S52.611A Displaced fracture of right ulna styloid process, initial encounter for closed fracture; W01.0XXA Fall on same level from slipping, tripping and stumbling without subsequent striking against object, initial encounter; Y93.9 Activity, unspecified; Y92.002 Bathroom of unspecified non-institutional (private) residence as the place of occurrence of the external cause; Y99.9 Unspecified external cause status
CPT/HCPCS: 29125; 73110; 99281; 99284

== ENCOUNTER 2024-01-12 14:19 | Outpatient (AMB) | payer MEDICARE, SELFPAY ==
--- NOTE | 2024-01-12 14:48 | A.OFFVIS_ITS ---
Vital Signs 01/12/24 14:55 Height 5 ft 3 in Weight 120 lb BMI 21.3 Handedness Right Intake Visit Reasons: FC-right wrist FC-ER follow up 01/08/24 Intake Note: Fatimah is a 58 year old right hand dominant female who presents today for a evaluation of her right wrist fx, DOI 01/07/24. Patient reports she fell and tripped over a shoe. She states that she is felling okay with some dull pain on the dorsal aspect of the wrist. Denies numbness and tingling in her fingers. Allergies amoxicillin [From Augmentin] Allergy (Verified 01/12/24 14:54) Anaphylaxis clavulanic acid [From Augmentin] Allergy (Verified 01/12/24 14:54) Anaphylaxis lorazepam [From Ativan] Allergy (Verified 01/12/24 14:54) Unknown salsalate Allergy (Verified 01/12/24 14:54) Swelling HPI HPI FC-right wrist FC-ER follow up 01/08/24: Details: 58-year-old right hand dominant female who presents in the office today, as a new patient, for an evaluation of right wrist pain. Patient presented to the ED on 01/08/2024 status post a fall caused by tripping on a shoe on 01/07/2024. X- rays were obtained. The patient was placed in a shoulder immobilizer and sugar tong splint. The patient was prescribed Doxycycline hyclate 100 mg PO BID for 7 days. While in the office today the patient reports she fell after she tripped over a shoe. She states she is feeling okay but has a dull pain on the dorsal aspect of the right wrist. She denies numbness or tingling. Patient denies taking any blood thinners. She is currently taking Tylenol and Ibuprofen for pain. Patient has an allergy history, as follows: -Amoxicillin; anaphalxis -Augmentin; anaphlaxis -Clavulanic acid; anaphlaxis -Lorazepam; unknow -Salsalate; edema. Patient is currently taking, as follows: -Doxycycline hyclate 100 mg PO BID for 7 days Patient has a medical history, as follows: -COPD on inhaler Patient has no known surgical history. Patient has a social history, as follows: -Alcohol: Confirms drinking ?a few drinks? weekly. -Tobacco: Confirms smoking 0.5 packs of cigarettes per week. -Recreational drugs: Denies the use of. Review of Systems Const All systems reviewed & are unremarkable except as noted in HPI and below Physical Exam Vital Signs: BMI result Body Mass Index 21.3 Const General: cooperative, healthy appearing, comfortable, no acute distress, well developed, alert and awake Orientation/consciousness: patient oriented x3 HEENT Head: Yes normal to inspection, Yes normocephalic and Yes atraumatic Eyes General: appearance normal, both eyes and all related structures Neck Neck: Yes normal visual inspection and Yes no lymphadenopathy Resp Effort & Inspection: normal respiratory effort and able to speak in complete sentences Cardio Rate: regular rate Peripheral pulses: Peripheral pulses 2+ throughout GI Inspection: Yes normal to inspection Palpation (GI): Soft to palpation Skin General skin exam: no rashes or lesions noted Neuro General: patient oriented x3 Extrem Other: Right wrist: Dorsal side of proximal forearm there are two areas of skin tearing roughly 1.5 inches in length and one puncture wound. Able to perform wrist flexion and extension with minimal pain. Significant ecchymosis over the dorsal aspect of the midshaft forearm extending into the dorsal aspect of the hand and the dorsal aspect of the fingers Psych Mental Status: mental status grossly normal Office Procedures Casting/Splints 19432-Uezqruk Splint Application Procedure code (CPT) selection complete Assessment & Plan Assessment & Plan (1) Fracture of right distal radius: Code(s): S52.501A - Unspecified fracture of the lower end of right radius, initial encounter for closed fracture Category: Medical Qualifiers: Encounter type: initial encounter Fracture morphology: unspecified fracture morphology Fracture type: closed Qualified Code(s): S52.501A - Unspecified fracture of the lower end of right radius, initial encounter for closed fracture Plan Ms. Arguello is a 58-year-old right hand dominant female who presents in the office today, as a new patient, for an evaluation of right wrist pain. Patient presented to the ED on 01/08/2024 status post a fall caused by tripping on a shoe on 01/07/2024. X-rays were obtained. The patient was placed in a shoulder immobilizer and sugar tong splint. The patient was prescribed Doxycycline hyclate 100 mg PO BID for 7 days. While in the office today the patient reports she fell after she tripped over a shoe. She states she is feeling okay but has a dull pain on the dorsal aspect of the right wrist. She denies numbness or tingling. Patient denies taking any blood thinners. She is currently taking Tylenol and Ibuprofen for pain. Patient has an allergy history, as follows: -Amoxicillin; anaphalxis -Augmentin; anaphlaxis -Clavulanic acid; anaphlaxis -Lorazepam; unknow -Salsalate; edema. Patient is currently taking, as follows: -Doxycycline hyclate 100 mg PO BID for 7 days Patient has a medical history, as follows: -COPD on inhaler Patient has no known surgical history. Patient has a social history, as follows: -Alcohol: Confirms drinking ?a few drinks? weekly. -Tobacco: Confirms smoking 0.5 packs of cigarettes per week. -Recreational drugs: Denies the use of. I reached out to discuss the case with Dr. Richard who was unavailable due to being in the OR. Therefore, the imaging was reviewed with Dr. Brenner who was in the office today but unavailable to see the patient and a collaborative treatment plan was made. I discussed in detail the procedure and what to expect pre and post operatively. We discussed the risks, benefits and alternatives to the surgery and the rehabilitation course. The risks include infection, bleeding, nerve injury, ongoing pain, swelling, and stiffness, perioperative risk of injury to bones and soft tissues, and blood clots. I have answered all questions and with their understanding they have consented to move forward with a right distal radius ORIF to be performed on , 01/15/2024, by Dr. Mine Richard. The wounds were dressed in the office today with Xeroform nonstick gauze. She was placed in a custom-made short arm volar wrist splint in neutral position. Follow-up will be at the post operative appointment, or sooner if needed. X-rays of the right wrist which were obtained while in the office today and were reviewed by me, Angy Ortiz PA-C, redemonstration of a right distal radius fracture with intraarticular extension and displacement. X-rays of the right wrist, obtained on 01/08/2024, revealed: Distal radius and ulnar styloid fractures. Osteopenia. Orders: Orders XR wrist RT min 3V 01/12/24 M25.539 - Pain in unspecified wrist Patient Instructions: Scribed by Maddy Caballero medical review specialist, for Angy Ortiz PA-C on 01/12/2024 at 5:04 pm, EST. Coding Level of Care Code New Pt Level 4 (71802) Diagnoses Closed fracture of distal end of right radius, unspecified fracture morphology, initial encounter S52.501A Encounter type: initial encounter Fracture morphology: unspecified fracture morphology Fracture type: closed CPT Codes Splint - CPT: 01434-Nqrxzmp Splint Application ([id number])
[2024-01-12 14:55] VITALS: BMI 21.3
== END 2024-01-12 15:43 | disposition home or self-care (01) ==
PROVIDERS: PCP Internal Medicine; Visit Provider Physician Assistant
DX: S52.501A Unspecified fracture of the lower end of right radius, initial encounter for closed fracture (principal); W01.0XXA Fall on same level from slipping, tripping and stumbling without subsequent striking against object, initial encounter
CPT/HCPCS: 25600; 99204

== ENCOUNTER 2024-01-12 14:37 | Outpatient (REF) | payer MEDICARE, SELFPAY ==
--- NOTE | ~2024-01-12 | XR_ITS ---
EXAMINATION: XR WRIST, RIGHT CLINICAL INFORMATION: Pain in specified wrist, splint off. COMPARISON: 01/08/2024 TECHNIQUE: PA, lateral, and oblique views of the right wrist. FINDINGS: Bones are diffusely demineralized. Redemonstration of a comminuted fracture of the distal radius. There is impaction and displacement of fracture fragments. There is possible intra-articular extension of the articular surface. XR/XR wrist RT min 3V IMPRESSION: Redemonstration of comminuted fracture of the distal radius with impaction and displacement of fracture fragments.
== END 2024-01-12 14:38 | disposition home or self-care (01) ==
LOC: HO.HOSX 14:37
PROVIDERS: Visit Provider Physician Assistant
DX: S52.501A Unspecified fracture of the lower end of right radius, initial encounter for closed fracture (principal); W18.09XA Striking against other object with subsequent fall, initial encounter; Y93.9 Activity, unspecified; Y92.9 Unspecified place or not applicable; Y99.9 Unspecified external cause status
CPT/HCPCS: 25600; 73110; 99202

== ENCOUNTER 2024-01-15 05:51 | Day surgery (SDC) | payer MEDICARE, SELFPAY ==
--- NOTE | 2024-01-13 14:58 | P.CONAN_ITS ---
Documented by User: Maranda Hansen NP 01/13/24 14:59 HPI - Anesthesia Eval Consult details Narrative: 58yo F for Right Radius Distal Fracture [facility] Active Problems Active Problems: All Active Problems Fracture of right distal radius (Acute) COPD (chronic obstructive pulmonary disease) (Acute) Past Medical History Medical History Smoker COPD (chronic obstructive pulmonary disease) Surgical History Surgical History Hx of removal of cyst History of lumpectomy of left breast Hx of discectomy Social History Social History Patient Tobacco Use Status: Current everyday Tobacco user Tobacco use type: Cigarette Smoked in Last 30 Days: Yes Patient Interested in Nicotine Replacement: No Are you DNR?: No Advance Directives: No Advance Directives Information Provided: Yes Nutrition Risks: No Nutritional Risk Meds Allergies Allergy/AdvReac Type Severity Reaction Status Date / Time amoxicillin [From Augmentin] Allergy Anaphylaxis Verified 01/15/24 06:21 clavulanic acid Allergy Anaphylaxis Verified 01/12/24 14:54 [From Augmentin] lorazepam [From Ativan] Allergy Confusion Verified 01/15/24 06:40 salsalate Allergy Swelling Verified 01/15/24 06:21 Home Medications ?Medication ?Instructions ?Recorded ?Confirmed ?Last Taken ?Type albuterol sulfate 90 mcg/actuation inhalation 01/14/24 Unknown History aerosol inhaler amlodipine 5 mg tablet mg 01/14/24 01/15/24 History budesonide-formoterol HFA 80 inhalation 01/14/24 01/14/24 01/15/24 History mcg-4.5 mcg/actuation aerosol inhaler (Symbicort) Assessment and Plan Assessment Anesthesia Assessment: Chart Reviewed Documented by User: Mojgan Mandujano MD 01/15/24 07:40 PMFSH Past Medical History Medical History Smoker COPD (chronic obstructive pulmonary disease) Surgical History Surgical History Hx of removal of cyst History of lumpectomy of left breast Hx of discectomy History of Problems with Anesthesia: No Social History Social History Patient Tobacco Use Status: Current everyday Tobacco user Tobacco use type: Cigarette Smoked in Last 30 Days: Yes Patient Interested in Nicotine Replacement: No Are you DNR?: No Advance Directives: No Advance Directives Information Provided: Yes Nutrition Risks: No Nutritional Risk Meds Allergies Allergy/AdvReac Type Severity Reaction Status Date / Time amoxicillin [From Augmentin] Allergy Anaphylaxis Verified 01/15/24 06:21 clavulanic acid Allergy Anaphylaxis Verified 01/12/24 14:54 [From Augmentin] lorazepam [From Ativan] Allergy Confusion Verified 01/15/24 06:40 salsalate Allergy Swelling Verified 01/15/24 06:21 Home Medications ?Medication ?Instructions ?Recorded ?Confirmed ?Last Taken ?Type albuterol sulfate 90 mcg/actuation inhalation 01/14/24 Unknown History aerosol inhaler amlodipine 5 mg tablet mg 01/14/24 01/15/24 History budesonide-formoterol HFA 80 inhalation 01/14/24 01/14/24 01/15/24 History mcg-4.5 mcg/actuation aerosol inhaler (Symbicort) Exam Airway Mallampati Class: II (edentulous) TM Dist: >3cm Neck ROM: Full Denture: Upper and Lower Loose/Missing/Broken Teeth: Yes, Upper and Lower Heart: RRR Lungs: distant BS, no wheezing Assessment and Plan Assessment Anesthesia Assessment: Anesthesia Plan Discussed Final Anesthetic Review History of Problems with Anesthesia: No NPO: Yes ASA Class: III Final Preanesthetic Review: Meds/Allgs Chart Reviewed, Consent Obtained/Reviewed and Anes Risks/Benef Reviewed Patient Risk: Intermediate Procedure Risk: Low Anesthetic Plan Anesthetic Plan: GA and Regional Block Disposition: Standard PACU
--- NOTE | ~2024-01-15 | FL_ITS ---
EXAMINATION: XR FLUOROSCOPY WITH IMAGES CLINICAL INFORMATION: Radial fracture. COMPARISON: X-ray right wrist 01/12/2024. TECHNIQUE: Fluoroscopy Supervised By: Dr. Richard. Fluoroscopy Time: 21.04. Cumulative Dose: 0.669 mGy. DAP: 0.0404 Gycm2. Images: 2. FINDINGS: Intraoperative fluoroscopy and spot films were performed during a procedure in the OR. Plate and screw device seen overlying the distal radial fracture. Please see Dr. Richard' report for complete details. FL/FL guidance in OR IMPRESSION: Intraoperative fluoroscopy and spot films were obtained. Please see Dr. Richard' report for complete details.
[2024-01-15 06:19] VITALS: BMI 19.6
[2024-01-15] MEDS: Lactated Ringers 1,000 ML 100 ML IVCONT (06:27)
[2024-01-15 06:36] VITALS: BP 127/75; PULSE 84; RESP 18; TEMP 37; O2SAT 97
[2024-01-15] MEDS: Albuterol Sulfate (0.083%) 2.5 MG/3 ML VIAL.NEB INHALE (06:52)
--- NOTE | 2024-01-15 07:40 | MHC.SHP ---
Pre-Procedural Eval Section A - 24 Hr Update-Section A only Date of Service: 01/15/24 The patient is an INPATIENT: No Changes since office visit: No Cold of Flu in the past 2 weeks, No New Medical Problems, No Changes in Medication and No Patient answered all questions The patient has been examined within 24 hours of the surgical procedure. The History & Physical has been completed within 30 days and I have reviewed it.: Yes Section B - Complete if H&P > 30 days Chief Complaint: Right distal radius fracture Details of Present Illness: Right distal radius fracture Allergies: Allergies Allergy/AdvReac Type Severity Reaction Status Date / Time amoxicillin [From Augmentin] Allergy Anaphylaxis Verified 01/15/24 06:21 clavulanic acid Allergy Anaphylaxis Verified 01/12/24 14:54 [From Augmentin] lorazepam [From Ativan] Allergy Confusion Verified 01/15/24 06:40 salsalate Allergy Swelling Verified 01/15/24 06:21 Plan I have reviewed the history and physical and performed a pertinent physical examination on my patient. No changes have occurred unless specified. Time Spent With Patient Time: Total time managing care of this patient today ____ minutes.
--- NOTE | 2024-01-15 07:41 | P.OP_ITS ---
Operative Note Operative Note Date of Service: 01/15/24 Narrative: Operative Note Narrative: Preop diagnosis: 1. Right Distal radius fracture, comminuted intra-articular Postop diagnosis: 1. Right Distal radius fracture, comminuted intra-articular 2. Right dorsal forearm skin lacerations, 4 cm crescent-shaped and 2 cm longitudinal Procedure: 1. Right Distal radius fracture open reduction internal fixation, 2 part intra- articular 2. Right dorsal forearm skin lacerations delayed primary closures x2, total length 6 cm Surgeon: Mine Richard MD Anesthesia: General anesthesia plus regional block Findings: Right distal radius fracture Implants: A 3 hole Accu Med volar locking plate, with 4 X 2.3 mm locking pegs/screws, and 3 3.5 mm cortical screws Tourniquet time: 50 minutes EBL: 5.0 ml Specimen: None Drains: None Complications: None Disposition: Brought to the recovery room in stable condition Plan: Follow-up in 10-14 days for wound check, suture removal and postop radiographs The patient will be placed in either a short-arm cast or a volar wrist splint. Encouraged no lifting of anything heavier than a cell phone. Please encourage active and passive range of motion of the digits. Follow-up at 4-5 weeks postop for repeat radiographs. Indications: The patient is a 58 year old woman with right intra-articular distal radius fracture . The risks and benefits of operative treatment, including but not limited to risk of damage to blood vessels, nerves, tendons, infection, recurrence, persistent pain or numbness, incomplete resolution of preoperative symptoms, or need for further surgery were discussed with the patient and they wished to proceed with surgery. Procedure: Once consent was obtained patient was brought back to the operating suite and placed in the operating table in a supine position. A regional block was performed by the anesthesia team. Perioperative antibiotics and anesthesia was administered by the anesthesia team. A tourniquet was applied to the proximal aspect of the right upper extremity and the limb was prepped and draped in a standard surgical fashion. The limb was elevated exsanguinated with Esmarch bandage and the tourniquet inflated to 250 mm of mercury for a total tourniquet time of 50 minutes. The FluoroScan was used throughout the case to assess our reduction, and facilitate implant placement. A gentle closed reduction was 1st performed on the patient's right distal radius fracture. Was assessed radiographically before proceeding with the reduction internal fixation. I then made an 8 cm longitudinal incision over the distal aspect of the flexor carpi radialis tend on. The incision was made through the skin to the subcutaneous tissue using a 15. Blade. Then carefully dissected down to flexor carpi radialis tendon she tenotomy scissors. The FCR tendon sheath was then incised longitudinally using tenotomy scissors under direct visualization. The FCR tendon was then retracted ulnarly. I then made a longitudinal incision in the volar forearm fascia through the floor of FCR tendon sheath using tenotomy scissors under direct visualization. I identified the interval between the radial artery and the flexor tendons. This interval was developed further with my index finger, releasing some of the muscular fibers of the flexor pollicis longus. A dull weatlander retractor was then placed. I then created an ulnarly based flap of the pronator quadratus by releasing the radial and distal edges using a 15. Blade. A Haywood elevator was used to elevate the pronator quadratus from the volar surface of the distal radius. This then revealed to us our distal radius fracture. An open reduction was then performed on our distal radius fracture. I then placed a short narrow 3 hole Accu Med volar locking plate on the volar surface of the distal radius. I placed a single K-wire through the distal aspect of the plate and into the distal radius. This was assessed using fluoroscopic images. I was satisfied with the placement of our plate. I then placed 4x 2.3 mm locking screws/pegs in the distal aspect of the plate and distal radius by 1st drilling bicortically with a 1.8 mm drill bit, measuring with a depth gauge, and placing the appropriate length locking screws/pegs. The placement of our plate and screws was then assessed again using fluoroscopic images. The once satisfied with the placement of the volar locking plate and screws on the distal aspect of the distal radius, the plate was then reduced to the shaft of the radius. I then placed 3 x 3.5 mm cortical screws to the proximal aspect of the plate and into the shaft of the radius. This was done by 1st drilling bicortically with a 2.8 mm drill bit, measuring with a depth gauge, and placing the appropriate length screw. Final radiographs were then obtained. The DRUJ was assessed and found to be stable on exam. I was satisfied with our reduction and placement of all implants. At this point the wound was irrigated with normal saline. The pronator quadratus was reduced back over the volar locking plate using some 3-0 Vicryl suture material. The tourniquet was then deflated and hemostasis was obtained with a brief period of local pressure and bipolar monopolar electrocautery. The subcutaneous layer was then reapproximated using some 4-0 Vicryl suture, and the skin edges were reapproximated using some 5 0 Prolene suture. The wound was then infiltrated with some 0.5% plain ropivacaine postop pain control. The patient was also noted to have 2 skin tears on the dorsal aspect of her proximal forearm. The more proximal was crescent shaped and measured 4 cm in le ngth. The wound was irrigated with normal saline in a delayed primary closure was performed using some 5 0 Prolene suture material. The more distal skin tear was more longitudinally oriented and was 2.5 cm in length. This wound was also irrigated and the skin edges reapproximated with some 5 0 Prolene suture. A sterile dressings and a short dorsal splint allowing for active flexion and extension of the digits was applied. The patient appears to have tolerated the procedure well and with no complications. All digits were well vascularized conclusion of the case.
[2024-01-15 09:40] VITALS: BP 137/73; PULSE 80; RESP 12; TEMP 36.1; O2SAT 97
[2024-01-15 09:45] VITALS: BP 133/76; PULSE 87; RESP 15; O2SAT 93
[2024-01-15 09:50] VITALS: BP 133/76; PULSE 91; RESP 18; O2SAT 95
[2024-01-15 09:55] VITALS: BP 123/84; PULSE 98; RESP 16; O2SAT 95
[2024-01-15 10:10] VITALS: BP 122/60; PULSE 87; RESP 16; TEMP 36.1; O2SAT 94
== END 2024-01-15 10:35 | disposition home or self-care (01) ==
PROVIDERS: PCP Internal Medicine; Visit Provider Orthopaedic Surgery
PROC: (CPT 25608; principal; 2024-01-15 07:30)
DX: S52.571B Other intraarticular fracture of lower end of right radius, initial encounter for open fracture type I or II (principal); W01.0XXA Fall on same level from slipping, tripping and stumbling without subsequent striking against object, initial encounter; Y93.9 Activity, unspecified; Y92.9 Unspecified place or not applicable; Y99.9 Unspecified external cause status; J44.9 Chronic obstructive pulmonary disease, unspecified; F17.210 Nicotine dependence, cigarettes, uncomplicated
CPT/HCPCS: 25608; 12002; C1713; J0665; J0736; J1100; J2250; J2371; J2405; J2704; J2795; J3010

== ENCOUNTER → 2024-01-15 05:51 | Outpatient (BNV) | payer MEDICARE, SELFPAY | PROVIDERS: PCP Internal Medicine; Visit Provider Orthopaedic Surgery | DX: S52.571A Other intraarticular fracture of lower end of right radius, initial encounter for closed fracture (principal); S51.811A Laceration without foreign body of right forearm, initial encounter | CPT/HCPCS: 12002; 25608 ==

== ENCOUNTER 2024-01-16 10:29 | Outpatient (AMB) | payer MEDICARE, SELFPAY ==
--- NOTE | 2024-01-16 10:33 | A.OFFVIS_ITS ---
Intake Visit Reasons: PO-RT distal radius ORIF 01/15/24-bandage change Intake Note: Fatimah is a 58 year old right hand dominant female who presents today for a bandage change s/p right wrist fx, DOI 01/07/24. Patient reports Dr. Richard just want the bandage to be changed and not the whole splint. Allergies amoxicillin [From Augmentin] Allergy (Verified 01/15/24 06:21) Anaphylaxis clavulanic acid [From Augmentin] Allergy (Verified 01/12/24 14:54) Anaphylaxis lorazepam [From Ativan] Allergy (Verified 01/15/24 06:40) Confusion salsalate Allergy (Verified 01/15/24 06:21) Swelling HPI HPI PO-RT distal radius ORIF 01/15/24-bandage change: Details: 58-year-old right hand dominant female who presents in the office today for a bandage change and wound check; 1 day status post right distal radius fracture open reduction internal fixation, 2 part intra-articular and right dorsal forearm skin lacerations delayed primary closures x2, total length 6 cm, which was performed on 01/15/[address] Richard. Patient called the after-hours last night due to bleeding coming from the right upper extremity. While in the office today the patient reports she was told by Dr. Richard to come in for a bandage change and not the entire splint. [facility] Medical History Smoker COPD (chronic obstructive pulmonary disease) Surgical History Hx of removal of cyst History of lumpectomy of left breast Hx of discectomy Social History Patient Tobacco Use Status: Current everyday Tobacco user Tobacco use type: Cigarette Review of Systems Const All systems reviewed & are unremarkable except as noted in HPI and below Physical Exam Const General: cooperative, healthy appearing and no acute distress Resp Effort & Inspection: normal respiratory effort and able to speak in complete sentences Cardio Rate: regular rate Peripheral pulses: Peripheral pulses 2+ throughout GI Palpation (GI): Soft to palpation Skin Lesions: no lesions Rashes: no rashes Extrem Other: Right wrist volar splint intact. proximal forearm skin tear has sutures in place with no surrounding erythema. Small amount of bloody oozing. No signs of infection surrounding this area. Able to move all digits. Assessment & Plan Assessment & Plan (1) Fracture of right distal radius: Comment: Right distal radius fracture open reduction internal fixation 01/15/2024 Dr. Richard Code(s): S52.501A - Unspecified fracture of the lower end of right radius, initial encounter for closed fracture Category: Surgical Qualifiers: Encounter type: initial encounter Fracture morphology: unspecified fracture morphology Fracture type: closed Qualified Code(s): S52.501A - Unspecified fracture of the lower end of right radius, initial encounter for closed fracture Plan Ms. Lancaster is a 58-year-old right hand dominant female who presents in the office today for a bandage change and wound check; 1 day status post right distal radius fracture open reduction internal fixation, 2 part intra-articular and right dorsal forearm skin lacerations delayed primary closures x2, total length 6 cm, which was performed on 01/15/[address] Richard. Patient called the after-hours last night due to bleeding coming from the right upper extremity. While in the office today the patient reports she was told by Dr. Richard to come in for a bandage change and not the entire splint. Patient was seen for a wound check in regard to the proximal skin tear on the dorsal side of the forearm. A new Xeroform dressing and Tegaderm was applied in the office today. The patient was given extra supplies in the event she needed to change the dressing over the weekend. Follow up will be at her regularly scheduled appointment, or sooner if needed. Patient Instructions: Scribed by Maddy Caballero biomedical engineering technician, for Angy Ortiz PA-C on 01/16/2024 at 10:30 am, EST. Coding Level of Care Code Global (80483) Diagnoses Closed fracture of distal end of right radius, unspecified fracture morphology, initial encounter S52.501A Encounter type: initial encounter Fracture morphology: unspecified fracture morphology Fracture type: closed
== END 2024-01-16 11:33 | disposition home or self-care (01) ==
PROVIDERS: PCP Internal Medicine; Visit Provider Physician Assistant
DX: S52.501A Unspecified fracture of the lower end of right radius, initial encounter for closed fracture (principal)
CPT/HCPCS: 99024

== ENCOUNTER → 2024-01-16 10:29 | Outpatient (BNVA) | payer MEDICARE, SELFPAY | PROVIDERS: PCP Internal Medicine; Visit Provider Physician Assistant | DX: Z48.01 Encounter for change or removal of surgical wound dressing (principal); S52.501D Unspecified fracture of the lower end of right radius, subsequent encounter for closed fracture with routine healing | CPT/HCPCS: 99212 ==

== ENCOUNTER 2024-01-21 12:46 | Outpatient (REF) | payer MEDICARE, SELFPAY ==
--- NOTE | ~2024-01-21 | XR_ITS ---
EXAMINATION: XR WRIST, RIGHT CLINICAL INFORMATION: Pain in right wrist. COMPARISON: 01/12/2024, 01/08/2024. TECHNIQUE: PA, lateral, and oblique views of the right wrist. FINDINGS: Status post ORIF of previously demonstrated comminuted fracture of the distal radius transfixed with plate and screws. Hardware appears intact. Alignment maintained. Redemonstration of mildly displaced ulnar styloid fracture. Diffuse soft tissue swelling at the wrist. XR/XR wrist RT min 3V IMPRESSION: 1. Status post ORIF of previously demonstrated comminuted fracture of the distal radius transfixed with plate and screws. Hardware appears intact. Alignment maintained. 2. Redemonstration of mildly displaced ulnar styloid fracture.
== END 2024-01-21 12:47 | disposition home or self-care (01) ==
LOC: HO.HOSX 12:46
DX: M25.531 Pain in right wrist (principal); S52.501D Unspecified fracture of the lower end of right radius, subsequent encounter for closed fracture with routine healing; X58.XXXD Exposure to other specified factors, subsequent encounter; Z98.890 Other specified postprocedural states
CPT/HCPCS: 73110; 99212

== ENCOUNTER 2024-01-21 14:15 | Outpatient (AMB) | payer MEDICARE, SELFPAY ==
--- NOTE | 2024-01-21 15:10 | MHC.OFFVIS ---
Intake Visit Reasons: PO RT distal radius ORIF 01/15/24 AR Intake Note: Fatimah is a 58 year old female who presents today for a pos top appointment s/p right distal radius ORIF 01/15/24 AR. patient reports she is having a lot of pain and swelling in the incision site. Allergies amoxicillin [From Augmentin] Allergy (Verified 01/15/24 06:21) Anaphylaxis clavulanic acid [From Augmentin] Allergy (Verified 01/12/24 14:54) Anaphylaxis lorazepam [From Ativan] Allergy (Verified 01/15/24 06:40) Confusion salsalate Allergy (Verified 01/15/24 06:21) Swelling HPI HPI PO RT distal radius ORIF 01/15/24 AR: Details: Fatimah is a 58 year old right hand dominant woman who presents S/P right distal radius ORIF & forearm laceration closure, DOS: 01/15/24. She was seen by MARINO Travis on 01/16/24 with complaints of bleeding from her laceration, she was placed in a new dressing. She presents today saying she is doing well overall. [facility] Medical History Smoker COPD (chronic obstructive pulmonary disease) Surgical History Hx of removal of cyst History of lumpectomy of left breast Hx of discectomy Social History Patient Tobacco Use Status: Current everyday Tobacco user Tobacco use type: Cigarette Review of Systems Const All systems reviewed & are unremarkable except as noted in HPI and below Physical Exam Const General: no acute distress and alert Orientation/consciousness: patient oriented x3 Neuro General: patient oriented x3 Extrem Other: The patient was alert oriented and in no acute distress The incisions are healing well with no erythema drainage or evidence of infection. She can make a fist and extend all her digits Good active elbow ROM Resolving swelling & ecchymosis Sensation is intact Cap refill is brisk Radiographs: 3 views of the right wrist were taken and viewed by me today in clinic. There is a distal radius fracture with satisfactory fracture reduction and position of all implants. Psych Appearance: grossly normal Affect: normal affect Attitude: cooperative Assessment & Plan Assessment & Plan (1) Fracture of right distal radius: Comment: Right distal radius fracture open reduction internal fixation 01/15/2024 Dr. Richard Code(s): S52.501A - Unspecified fracture of the lower end of right radius, initial encounter for closed fracture Category: Surgical Qualifiers: Encounter type: initial encounter Fracture morphology: unspecified fracture morphology Fracture type: closed Qualified Code(s): S52.501A - Unspecified fracture of the lower end of right radius, initial encounter for closed fracture (2) Laceration of right forearm: Code(s): S51.811A - Laceration without foreign body of right forearm, initial encounter Category: Medical Plan Assessment & Plan: 1. Right distal radius fracture, S/P ORIF DOS: 01/15/24 2. Right dorsal forearm laceration, S/P closure DOS: 01/15/24 The patient appears to be doing well post-operatively I educated her about the post-operative course She was fitted for a velcro wrist splint, to be worn like a cast except for showering, for the next 3 weeks I explained the signs and symptoms of infection, if the patient develops any new or worsening erythema, drainage, pain, or warmth they should contact the clinic or attend the ED. I discussed activity modifications, she is to lift nothing heavier than a cellphone for the next 4 weeks She will perform gentle finger ROM exercises at home She should avoid any underwater activities at this time She will follow up next week for a wound check and suture removal Scribed for Mine Richard MD by Marc Carrasco, medical assistant cardiology, on 01/21/24 at 3:25 PM, EST. Orders: Orders XR wrist RT min 3V Today M25.531 - Pain in right wrist Coding Level of Care Code Global (80701) Diagnoses Closed fracture of distal end of right radius, unspecified fracture morphology, initial encounter S52.501A Encounter type: initial encounter Fracture morphology: unspecified fracture morphology Fracture type: closed Laceration of right forearm S51.811A
== END 2024-01-21 15:51 | disposition home or self-care (01) ==
PROVIDERS: PCP Internal Medicine; Visit Provider Orthopaedic Surgery
DX: S52.501A Unspecified fracture of the lower end of right radius, initial encounter for closed fracture (principal); S51.811A Laceration without foreign body of right forearm, initial encounter
CPT/HCPCS: 99024

== ENCOUNTER 2024-01-27 10:20 | Outpatient (REF) | payer MEDICARE, SELFPAY ==
--- NOTE | ~2024-01-27 | XR_ITS ---
EXAMINATION: XR WRIST, RIGHT CLINICAL INFORMATION: Right wrist pain. COMPARISON: 01/21/2024 TECHNIQUE: PA, lateral, and oblique views of the right wrist. FINDINGS: Again seen is a plate and screw device overlying the distal radial metaphysis. No acute fractures are seen in the hardware appears intact. Again noted is a displaced ulnar styloid fracture. Mild degenerative changes are present in the wrist. Diffuse soft tissue swelling is again noted. XR/XR wrist RT min 3V IMPRESSION: 1. No acute finding. 2. Status post ORIF distal radial fracture with intact hardware. 3. Displaced ulnar styloid fracture.
== END 2024-01-27 10:21 | disposition home or self-care (01) ==
LOC: HO.HOSX 10:20
PROVIDERS: Visit Provider Orthopaedic Surgery
DX: M25.531 Pain in right wrist (principal)
CPT/HCPCS: 73110

== ENCOUNTER 2024-01-28 07:48 | Outpatient (AMB) | payer MEDICARE, SELFPAY ==
--- NOTE | 2024-01-28 07:55 | A.OFFVIS_ITS ---
Intake Visit Reasons: PO RT distal radius ORIF 01/15/24 AR Intake Note: Fatimah is a 58 year old female who presents today for a pos top appointment s/p right distal radius ORIF 01/15/24 AR. At her last visit she was placed in a velcro wrist splint. Patient reports that she is doing well she is taking occasional ibuprofen. She has been wearing her Velcro splint all the time, like a cast. Denies numbness and tingling. Sutures removed, steri strips applied Allergies amoxicillin [From Augmentin] Allergy (Verified 01/15/24 06:21) Anaphylaxis clavulanic acid [From Augmentin] Allergy (Verified 01/12/24 14:54) Anaphylaxis lorazepam [From Ativan] Allergy (Verified 01/15/24 06:40) Confusion salsalate Allergy (Verified 01/15/24 06:21) Swelling HPI HPI PO RT distal radius ORIF 01/15/24 AR: Details: Fatimah is a 58 year old right hand dominant woman who presents S/P right distal radius ORIF & forearm laceration closure, DOS: 01/15/24. She was seen by MARINO Travis on 01/16/24 with complaints of bleeding from her proximal forearm lacerations, she was placed in a new dressing. She presents today saying she is doing well overall. She denies any numbness or tingling PFSH Medical History Smoker COPD (chronic obstructive pulmonary disease) Surgical History Hx of removal of cyst History of lumpectomy of left breast Hx of discectomy Social History Patient Tobacco Use Status: Current everyday Tobacco user Tobacco use type: Cigarette Review of Systems Const All systems reviewed & are unremarkable except as noted in HPI and below Physical Exam Const General: no acute distress and alert Orientation/consciousness: patient oriented x3 Neuro General: patient oriented x3 Extrem Other: The patient was alert oriented and in no acute distress The incisions are healing well with no erythema drainage or evidence of infection. Sutures removed and steri-strips applied Wounds on dorsal aspect of proximal forearm are healing well with no evidence of infection She can make a fist and extend all her digits Good active elbow ROM Wrist pronation: ~65 degrees Wrist supination: ~60 degrees Sensation is intact to all digits Cap refill is brisk Radiographs: 3 views of the right wrist were taken and viewed by me today in clinic. There is a distal radius fracture with satisfactory fracture reduction and position of all implants. Psych Appearance: grossly normal Affect: normal affect Attitude: cooperative Assessment & Plan Assessment & Plan (1) Fracture of right distal radius: Comment: Right distal radius fracture open reduction internal fixation 01/15/2024 Dr. Richard Code(s): S52.501A - Unspecified fracture of the lower end of right radius, initial encounter for closed fracture Category: Surgical Qualifiers: Encounter type: initial encounter Fracture morphology: unspecified fracture morphology Fracture type: closed Qualified Code(s): S52.501A - Unsp ecified fracture of the lower end of right radius, initial encounter for closed fracture (2) Laceration of right forearm: Code(s): S51.811A - Laceration without foreign body of right forearm, initial encounter Category: Medical Plan Assessment & Plan: 1. Right distal radius fracture, S/P ORIF DOS: 01/15/24 2. Right dorsal forearm laceration, S/P closure DOS: 01/15/24 The patient appears to be doing well post-operatively I educated her about the post-operative course She will continue to wear her velcro wrist splint like a cast, except for showering, for the next 3 weeks I explained the signs and symptoms of infection, if the patient develops any new or worsening erythema, drainage, pain, or warmth they should contact the clinic or attend the ED. I discussed activity modifications, she is to lift nothing heavier than a cellphone for the next 3 weeks She will perform gentle finger ROM exercises at home She should avoid any underwater activities at this time She will follow up in 3 weeks for a ROM check, with X-rays 3V attn R wrist Scribed for Mine Richard MD by Marc Carrasco nuclear medicine medical director, on 01/28/24 at 8:25 AM EST. Orders: Orders XR wrist RT min 3V Today M25.531 - Pain in right wrist Coding Level of Care Code Global (62881) Diagnoses Closed fracture of distal end of right radius, unspecified fracture morphology, initial encounter S52.501A Encounter type: initial encounter Fracture morphology: unspecified fracture morphology Fracture type: closed Laceration of right forearm S51.818T
== END 2024-01-28 08:47 | disposition home or self-care (01) ==
PROVIDERS: PCP Internal Medicine; Visit Provider Orthopaedic Surgery
DX: S52.501A Unspecified fracture of the lower end of right radius, initial encounter for closed fracture (principal); S51.811A Laceration without foreign body of right forearm, initial encounter
CPT/HCPCS: 99024

== ENCOUNTER → 2024-01-28 07:48 | Outpatient (BNVA) | payer MEDICARE, SELFPAY | PROVIDERS: PCP Internal Medicine; Visit Provider Orthopaedic Surgery | DX: S52.501D Unspecified fracture of the lower end of right radius, subsequent encounter for closed fracture with routine healing (principal); S51.811D Laceration without foreign body of right forearm, subsequent encounter | CPT/HCPCS: 99212 ==

== ENCOUNTER 2024-02-18 08:15 | Outpatient (AMB) | payer MEDICARE, SELFPAY ==
--- NOTE | 2024-02-18 08:30 | MHC.OFFVIS ---
Vital Signs 02/18/24 08:32 Height 5 ft 3 in Weight 118 lb BMI 20.9 Handedness Right Intake Visit Reasons: PO-RT distal radius ORIF 01/15/24 AR-w/xray Intake Note: Fatimah is a 58 year old right hand dominant female who presents today post operatively for Right distal radius ORIF 01/15/24 AR. Patient reports mild pain still but not too much when she has her velcro splint on. She has continued wearing the splint except for showering and when she is home and has not been lifting anything heavier than a cellphone. She has been working on gentle finger ROM at home and has noticed improvement. She still has 2 steri strips that have not fell off and are stuck to a scab on her incision site that she is concerned about. Accompanied by: Daughter Allergies amoxicillin [From Augmentin] Allergy (Verified 02/18/24 08:34) Anaphylaxis clavulanic acid [From Augmentin] Allergy (Verified 02/18/24 08:34) Anaphylaxis lorazepam [From Ativan] Allergy (Verified 02/18/24 08:34) Confusion salsalate Allergy (Verified 02/18/24 08:34) Swelling HPI HPI PO-RT distal radius ORIF 01/15/24 AR-w/xray: Details: Fatimah is a 58 year old right hand dominant woman who presents S/P right distal radius ORIF & forearm laceration closure, DOS: 01/15/24. She was seen by MARINO Travis on 01/16/24 with complaints of bleeding from her proximal forearm lacerations, she was placed in a new dressing. She presents today saying she is doing well overall. She denies any numbness or tingling [facility] Medical History Smoker COPD (chronic obstructive pulmonary disease) Surgical History Hx of removal of cyst History of lumpectomy of left breast Hx of discectomy Social History (Updated 02/18/24 @ 08:38 by ALEX Noland) Patient Tobacco Use Status: Former Tobacco user Current occupational status: unemployed Physical Exam Vital Signs: BMI result Body Mass Index 20.9 Const General: no acute distress and alert Orientation/consciousness: patient oriented x3 Neuro General: patient oriented x3 Extrem Other: The patient was alert oriented and in no acute distress The incisions are healing well with no erythema drainage or evidence of infection. Wounds on dorsal aspect of proximal forearm are well healed and look good Her fracture is completely nontender. She can make a fist and extend all her digits Good active elbow ROM Symmetrical pronosupination Wrist flexion: ~40 degrees Wrist extension: ~30 degrees Sensation is intact to all digits Cap refill is brisk Radiographs: 3 views of the right wrist were taken and viewed by me today in clinic. There is a distal radius fracture with satisfactory fracture alignment and position of all implants. Psych Appearance: grossly normal Affect: normal affect Attitude: cooperative Assessment & Plan Assessment & Plan (1) Fracture of right distal radius: Comment: Right distal radius fracture open reduction internal fixation 01/15/2024 Dr. Richard Code(s): S52.501A - Unspecified fracture of the lower end of right radius, initial encounter for closed fracture Category: Surgical Qualifiers: Encounter type: initial encounter Fracture morphology: unspecified fracture morphology Fracture type: closed Qualified Code(s): S52.501A - Unspecified fracture of the lower end of right radius, initial encounter for closed fracture (2) Laceration of right forearm: Code(s): S51.811A - Laceration without foreign body of right forearm, initial encounter Category: Medical Plan Assessment & Plan: 1. Right distal radius fracture, S/P ORIF DOS: 01/15/24 2. Right dorsal forearm laceration, S/P closure DOS: 01/15/24 The patient appears to be doing well post-operatively I educated her about the post-operative course She will continue to wear her velcro wrist splint when out of the house for the next 2 weeks. She will discontinue the splint at home or when at rest I discussed activity modifications, she is to begin to use her hand for lightweight activities She will perform ROM exercises at home I ordered OT hand therapy to work on wrist ROM exercises She is doing very well, I am going to let her follow up p.r.n.. I explained to the patient and her daughter that if they have any concerns that perhaps she has not getting her range of motion back way she would like she is welcome to make an appointment to come in and see me. I told them to let the delivery recruiter know that she has a postop patient. But this point I think it is likely that she will go on and not need to be seen. Scribed for Mine Richard MD by Marc Carrasco, medical practice assistant, on 02/18/24 at 8:45 AM EST. Orders: Orders OT Evaluation and Treatment Today MARINO Barnett S52.501A - Unspecified fracture of the lower end of right radius, initial encounter for closed fracture XR wrist RT min 3V Today Mine Richard MD M25.531 - Pain in right wrist Coding Level of Care Code Global (22835) Diagnoses Closed fracture of distal end of right radius, unspecified fracture morphology, initial encounter S52.501A Encounter type: initial encounter Fracture morphology: unspecified fracture morphology Fracture type: closed Laceration of right forearm S51.811A
[2024-02-18 08:32] VITALS: BMI 20.9
== END 2024-02-18 08:47 | disposition home or self-care (01) ==
PROVIDERS: PCP Internal Medicine; Visit Provider Orthopaedic Surgery
DX: S52.501A Unspecified fracture of the lower end of right radius, initial encounter for closed fracture (principal); S51.811A Laceration without foreign body of right forearm, initial encounter
CPT/HCPCS: 99024

== ENCOUNTER 2024-02-18 10:21 | Outpatient (REF) | payer MEDICARE, SELFPAY ==
--- NOTE | ~2024-02-18 | XR_ITS ---
EXAMINATION: XR WRIST, RIGHT CLINICAL INFORMATION: Pain in right wrist. COMPARISON: January 28, 2024. TECHNIQUE: PA, lateral, and oblique views of the right wrist. FINDINGS: Redemonstration of a plate and screw device overlying the distal radial metaphysis. Hardware appears intact. There is mild bridging callus formation. Redemonstration of displaced ulnar styloid fracture. Diffuse demineralization. Moderate degenerative changes in the first carpometacarpal joint with joint space narrowing and hypertrophic change. Diffuse soft tissue swelling. XR/XR wrist RT min 3V IMPRESSION: 1. Mild degenerative changes status post ORIF distal radial fracture. Hardware appears intact. 2. Redemonstration of ulnar styloid fracture.
== END 2024-02-18 10:22 | disposition home or self-care (01) ==
LOC: HO.HOSX 10:21
PROVIDERS: Visit Provider Orthopaedic Surgery
DX: S52.501D Unspecified fracture of the lower end of right radius, subsequent encounter for closed fracture with routine healing (principal); S51.811D Laceration without foreign body of right forearm, subsequent encounter
CPT/HCPCS: 73110; 99212

== ENCOUNTER 2024-03-16 09:00 | Outpatient (RCR) | payer MEDICARE, SELFPAY ==
--- NOTE | 2024-03-03 12:54 | MHC.OT.EP ---
[address] [phone] Occupational Therapy Plan of Care Patient Name: Fatimah Lancaster Date of Evaluation: 03/03/24 Diagnosis: Distal radius fracture post ORIF - Pain Location: Pain Score: 2 Pain Scale Used: Numeric (0 - 10) Aggravating Factors: movement Alleviating Factors: Keeping it secure in the splint Assessment: Pt is a R hand dominant 58 yr old female who fractured her R distal radius 01/08/24 when she tripped and fell on her grandsons sneaker. She reported going to the ED where she was placed in a splint/ cast and then had a follow up w/ Dr. Richard and had ORIF surgery on 01/15/24. She reports having a follow up w/ the MD and the fracture is healing nicely. Pt can extend digits and make a composite fist w/ out pain or difficulty. She presents in a prefabricated wrist cock up splint which MD will d/charge at her next follow up visit. Pt was referred to skilled OT therapy for increased ROM, strength, and functional use of her R hand Frequency and Duration: The patient will be seen 2 xs a week for 4 weeks Short Term Goals: Pt will be complaint w/ her HEP Pt will gain 20 Wrist ext (50) Pt will report performing LIGHT activities ; folding laundry outside her splint w/ out pain/ difficulty Alf Goals: Pt will gain 20 of wrist flexion (60) Pt will report washing her dishes w/ out difficulty Pt's DASH<10 Treatment Plan: Therapeutic Exercise Therapeutic Activity Home Exercise Program Splinting Neuro Re-ed Patient Education Desensitization/Sensory Re-ed Edema Control ADL Training Ultrasound NMES Iontophoresis Paraffin Fluidotherapy MHP Cold Packs Joint Mobilization Soft Tissue Mobilization Kinesiotaping Other (see comments) Pt does not drive and would like to do 2 xs 4 weeks to increase AROM of her dominant wrist ; and then be d/charged w/ an HEP Electronically Signed By: Jie Trujillo OTR/L Please Sign and return to therapist. Thank you once again for your referral.
== END 2024-03-16 09:49 | disposition home or self-care (01) ==
LOC: HO.OT 09:00
PROVIDERS: PCP Internal Medicine
DX: S52.501A Unspecified fracture of the lower end of right radius, initial encounter for closed fracture (principal)
CPT/HCPCS: 97110; 97140; 97166; 97535